=== PATIENT | female | born 1940 | race Hispanic/Latino ===

== ENCOUNTER 2017-03-31 16:54 | Inpatient (IN) | payer MEDICARE, MEDICAID ==
--- NOTE | 2017-03-31 17:23 | ED PDOC ---
Arrival/HPI - General Chief Complaint: Psychiatric Evaluation Time Seen by Provider: 03/31/17 17:13 Historian: Patient - History of Present Illness Narrative History of Present Illness (Text): 03/31/17 17:25 76yr old female presents today sent in by [facility] for aggressive behavior to residents. pts son states that the dr. bowden wants to have patient admitted for adjustment of medications. pt denies any complaints. Time/Duration: Prior to Arrival Past Medical History - Provider Review Nursing Documentation Reviewed: Yes - Travel History Have you recently traveled outside [place] w/in the past 3 mons?: No - Tetanus Immunization Tetanus Immunization: Unknown Family/Social History - Physician Review Nursing Documentation Reviewed: Yes Family/Social History: Unknown Family HX Smoking Status: Former Smoker Hx Alcohol Use: No Hx Substance Use: No Allergies/Home Meds Allergies/Adverse Reactions: Allergies ONIONS Allergy (Uncoded 03/31/17 17:02) ANAPHYLAXIS Home Medications: Home Meds Medication Instructions Recorded Confirmed Acetaminophen [Non-Aspirin Pain 650 mg PO Q4 PRN 03/31/17 03/31/17 Relief] Clonazepam [Klonopin] 0.5 mg PO BID 03/31/17 03/31/17 Lidocaine 5% [Lidoderm] 1 ea TD Q12 03/31/17 03/31/17 Magnesium Hydroxide [Milk Of 30 ml PO DAILY PRN 03/31/17 03/31/17 Magnesia] Metoprolol Tartrate [Lopressor] 12.5 mg PO Q12 03/31/17 03/31/17 Mirtazapine [Remeron] 15 mg PO HS 03/31/17 03/31/17 Multivitamin [Daily Ross] 1 tab PO DAILY 03/31/17 03/31/17 traMADol [Ultram] 50 mg PO TID 03/31/17 03/31/17 Review of Systems - Review of Systems Systems not reviewed;Unavailable: Dementia Respiratory: absent: SOB, Cough Cardiovascular: absent: Chest Pain, Palpitations Gastrointestinal: absent: Abdominal Pain, Vomiting Skin: absent: Rash Neurological: absent: Headache Physical Exam Vital Signs Reviewed: Yes Vital Signs Temp Pulse Resp BP Pulse Ox 03/31/17 19:05 98.5 F 90 18 193/76 H 95 Temperature: Afebrile Blood Pressure: Normal Pulse: Regular Respiratory Rate: Normal Appearance: Positive for: Well-Appearing, Non-Toxic, Comfortable Pain Distress: None Mental Status: Positive for: other (alert) - Systems Exam Head: Present: Atraumatic Mouth: Present: Moist Mucous Membranes Neck: Present: Normal Range of Motion Respiratory/Chest: Present: Clear to Auscultation Cardiovascular: Present: Regular Rate and Rhythm Abdomen: No: Tenderness, Distention, Rebound, Guarding Upper Extremity: Present: Normal ROM Lower Extremity: Present: Normal ROM. No: Edema Neurological: Present: Speech Normal Skin: Present: Warm, Dry Psychiatric: Present: Alert. No: Depressed Mood, Suicidal Ideation Medical Decision Making ED Course and Treatment: 03/31/17 17:32 Patient is nontoxic well-appearing in no distress vital signs are stable. CBC WNL CMP glucose: 158 bun: 26 Tylenol WNL Salicylate WNL Alcohol level WNL Urine drug screen wnl UA; wnl cxr: wnl ekg NSR at78b/m no st elevations, normal axis. normal intervals. pt is medically cleared for PES evaluation Patient was seen and evaluated by PES screener: brittney pt given 1mg of ativan for agitation. Impression; dementia admit behavioral health - Lab Interpretations Lab Results: 03/31/17 17:22 03/31/17 17:22 Lab Results 03/31/17 19:18: Urine Opiates Screen Negative, Urine Methadone Screen Negative, Ur Barbiturates Screen Negative, Ur Phencyclidine Scrn Negative, Ur Amphetamines Screen Negative, U Benzodiazepines Scrn Negative, U Oth Cocaine Metabols Negative, U Cannabinoids Screen Negative 03/31/17 19:18: Urine Color Yellow, Urine Appearance Sl cloudy, Urine pH 6.0, Ur Specific [place] 1.025, Urine Protein Negative, Urine Glucose (UA) Negative, Urine Ketones Negative, Urine Blood Small H, Urine Nitrate Positive H, Urine Bilirubin Negative, Urine Urobilinogen 0.2, Ur Leukocyte Esterase Small H, Urine RBC 5 - 10, Urine WBC 5 - 10, Ur Epithelial Cells 3 - 4, Urine Bacteria Many 03/31/17 17:22: Alcohol, Quantitative < 10 03/31/17 17:22: Salicylates < 1 L, Acetaminophen < 10.0 L 03/31/17 17:22: Sodium 140, Potassium 3.8, Chloride 102, Carbon Dioxide 27, Anion Gap 14, BUN 26 H, Creatinine 0.7, Est GFR ( Amer) > 60, Est GFR ( Non-Af Amer) > 60, Random Glucose 158 H, Calcium 9.9, Total Bilirubin 0.4, AST 28, ALT 36, Alkaline Phosphatase 113, Total Protein 7.1, Albumin 4.2, Globulin 2.8, Albumin/Globulin Ratio 1.5 03/31/17 17:22: WBC 7.7, RBC 4.79, Hgb 14.6, Hct 44.5, MCV 92.9, MCH 30.5, MCHC 32.8, RDW 13.0, Plt Count 244, MPV 9.5, Gran % 68.4 H, Lymph % (Auto) 24.8, [place] % (Auto) 5.7, Eos % (Auto) 1.0 L, Baso % (Auto) 0.1, Gran # 5.29, Lymph # 1.9, [place] # 0.4, Eos # 0.1, Baso # 0.01 - RAD Interpretation Radiology Orders: 03/31/17 17:23 CHEST PORTABLE [RAD] Stat - Medication Orders Current Medication Orders: Discontinued Medications Lorazepam (Ativan) 1 mg IM ONCE ONE PRN Reason: Protocol Stop: 03/31/17 20:26 Last Admin: 03/31/17 20:26 Dose: 1 mg IM Administration Charges Document 03/31/17 20:26 ELIZ (Rec: 03/31/17 21:02 ELIZ [id number]) Injection Site MAR Injection Site Left Deltoid Charges for Administration # of IM Administrations 1 Disposition/Present on Arrival - Present on Arrival Any Indicators Present on Arrival: No History of DVT/PE: No History of Uncontrolled Diabetes: No Urinary Catheter: No History of Decub. Ulcer: No - Disposition Have Diagnosis and Disposition been Completed?: Yes Diagnosis: Dementia Disposition: HOSPITALIZED Disposition Time: 23:44 Patient Plan: Admission Condition: FAIR
[2017-03-31 17:50] LABS: BASO # 0.01 K/mm3 (0.0-2.0); BASO % 0.1 % (0.0-3.0); EOS # 0.1 (0.0-0.7); GRAN # 5.29 (1.4-6.5); GRAN % 68.4 % (50.0-68.0); HEMOGLOBIN 14.6 g/dL (12.0-16.0); LYMPH # 1.9 (1.2-3.4); LYMPH % 24.8 % (22.0-35.0); MEAN CELL VOLUME 92.9 fl (80.0-105.0); MEAN CORPUSCULAR HEMOGLOBIN 30.5 pg (25.0-35.0); MEAN CORPUSCULAR HGB CONC 32.8 g/dl (31.0-37.0); MEAN PLATELET VOLUME 9.5 fl (7.0-11.0); MONO # 0.4 (0.1-0.6); MONO % 5.7 % (1.0-6.0); RBC 4.79 10^6/uL (3.5-6.1); WHITE BLOOD COUNT 7.7 10^3/ul (4.5-11.0)
[2017-03-31 17:55] LABS: ACETAMINOPHEN < 10.0 ug/ml (10.0-20.0); ALB/GLOB RATIO 1.5 (1.1-1.8); ALBUMIN 4.2 g/dL (3.0-4.8); ALT/SGPT 36 U/L (7-56); AST/SGOT 28 U/L (14-36); BLOOD UREA NITROGEN 26 mg/dL (7-21); CALCIUM 9.9 mg/dL (8.4-10.5); GFR AFRICAN-AMERICAN > 60; GFR NON-AFRICAN AMERICAN > 60; SALICYLATE < 1 mg/dL (2.0-20.0)
--- NOTE | 2017-03-31 18:35 | RAD ---
HISTORY: pes eval COMPARISON: No prior. FINDINGS: LUNGS: No active pulmonary disease. PLEURA: No significant pleural effusion identified, no pneumothorax apparent. CARDIOVASCULAR: No radiographic findings to suggest acute or significant cardiovascular disease. OSSEOUS STRUCTURES: No significant abnormalities. VISUALIZED UPPER ABDOMEN: Normal. OTHER FINDINGS: None. IMPRESSION: No active disease.
[2017-03-31 19:29] LABS: URINE BILIRUBIN NEGATIVE (NEGATIVE); URINE BLOOD SMALL (NEGATIVE); URINE GLUCOSE (UA) NEGATIVE (NEGATIVE); URINE LEUKOCYTE ESTERASE SMALL Leu/uL (NEGATIVE); URINE NITRATE POSITIVE (NEGATIVE); URINE PROTEIN NEGATIVE mg/dL (<30 mg/dL); URINE UROBILINOGEN 0.2 E.U./dL (<1 E.U./dL)
[2017-03-31 19:48] LABS: BARBITURATES, UR NEGATIVE (NEGATIVE); BENZODIAZEPINES, UR NEGATIVE (NEGATIVE); OPIATES, UR NEGATIVE (NEGATIVE); PHENCYCLIDINE, UR NEGATIVE (NEGATIVE)
--- NOTE | 2017-03-31 19:50 | CARD ---
APPROVED REPORT EKG Measurement Heart [id number] <Conclusion> Normal sinus rhythm Nonspecific T wave abnormality Abnormal ECG
[2017-03-31 19:57] LABS: URINE APPEARANCE SL CLOUDY (CLEAR); URINE COLOR YELLOW (YELLOW)
[2017-03-31 20:13] LABS: URINE BACTERIA MANY (NEG)
[2017-04-01] MEDS ORDERED: Alum-Mag Hydrox-Simethicone Susp (30 mL) PO PRN (01:15)
[2017-04-01] MEDS ORDERED: Magnesium Hydroxide Susp 30 ml UD PO PRN (01:15)
--- NOTE | 2017-04-01 03:14 | PCM.BM ---
<Eduard Braga - Last Filed: 04/01/17 03:11> Treatment Plan Problems - Problems identified on initial assessmt aggressive behavior Date Initiated: 04/01/17 Time Initiated: 01:00 Assessment reference: NA Status: Referred Priority: 2 dementia Date Initiated: 04/01/17 Time Initiated: 01:00 Assessment reference: NA Status: Active Priority: 1 Treatment assets and liabiliti Patient Assests: good support system Patient Liabilities: imparied memory, other (fall risk) - Milieu Protocol Maintain good personal hygiene: daily Encourage regular showers, daily Remind patient to perform daily oral care, daily Assist patient to perform ADL's Conduct patient checks and document Observation sheet: 1:1 Maintain personal safety: every shift Educate patient to report safety concerns to staff, every shift Monitor environment for contraband/sharps Medication safety: Monitor for expected outcome, potential side effects: every shift, Assess barriers to learning: every shift, Assess readiness for medication education: every shift Discharge/Continuing Care - Education Needs Education Needs: Family Medication, Family Diagnosis/Disease Process - Discharge Discharge Criteria: Free of agitation, Normal sleep pattern <Rowan Villagomez - Last Filed: 04/02/17 12:01> - Diagnosis (1) Dementia Status: Acute Interventions: MEDICATION MANAGEMENT 04/02/17 12:01 <Tiffany Cavazos - Last Filed: 04/03/17 16:52>
[2017-04-01 07:56] LABS: GLUCOSE,FASTING 111 mg/dL (65-110); HDL CHOLESTEROL 43 mg/dL (29-60)
[2017-04-01 08:07] LABS: LDL CHOLESTEROL 150 mg/dL (0-129)
--- NOTE | 2017-04-01 08:25 | CP.PCM.CON ---
<Chao Jacome - Last Filed: 04/01/17 15:15> History of Present Illness - History of Present Illness History of Present Illness: 76 F with a PMHx of Alzheimer's dementia, COPD, and anxiety brought in by ambulance to [facility] from [facility] with complaints of agitation and aggressive behavior towards correction residents. As per family , pt's back tender insulation board Dr. Bhakta requested to have pt's medications adjusted. Pt was seen and examined at bedside. Pt is AAOx1, denies any complaints at this time. Pt is confused, disorganized and a poor historian. Pt has unsteady gait, has 1;1 sitter for pt safety. Pt denied any current SI/HI. As per nursing staff , pt received haldol overnight and subsequently retired to bed. Pt is moving bowel and bladder independently and regularly. Pt is tolerating PO intake. Pt denied any sleep disturbances. Pt denied headache, fever, chills, sob, chest pains, abdominal pains, n/v/d/c. PMHx: Alzheimer's dementia, ?COPD, kyphoscoliosis and anxiety PSHx: Denied SHx: Denied tobacco/etoh/illicit drug FamHx: Noncontributory Meds: MAR reviewed Allergies: Onions PMD: Dr. Fowler POA: Mark Spangler Review of Systems - Review of Systems Systems not reviewed;Unavailable: Dementia Past Patient History - Tetanus Immunizations Tetanus Immunization: Unknown - Past Social History Smoking Status: Former Smoker - CARDIAC Hx Cardiac Disorders: No Hx Hypertension: No - PULMONARY Hx Tuberculosis: No - NEUROLOGICAL HX Cerebrovascular Accident: No Hx Seizures: No - HEMATOLOGICAL/ONCOLOGICAL Hx Cancer: No Hx Human Immunodeficiency Virus (HIV): No - GENITOURINARY/GYNECOLOGICAL Hx Sexually Transmitted Disorders: No - PSYCHIATRIC Hx Substance Use: No Meds Allergies/Adverse Reactions: Allergies Allergy/AdvReac Type Severity Reaction Status Date / Time ONIONS Allergy ANAPHYLAXIS Uncoded 04/01/17 01:28 - Medications Medications: Current Medications Acetaminophen (Tylenol 325mg Tab) 650 mg PO Q4 PRN PRN Reason: Pain, moderate (4-7) Al Hydrox/Mg Hydrox/Simethicone (Maalox Plus 30 Ml) 30 ml PO DAILY PRN PRN Reason: Upset Stomach Clonazepam (Klonopin) 0.5 mg PO BID RUBI PRN Reason: Protocol Lidocaine (Lidoderm) 1 ea TD DAILY RUBI Magnesium Hydroxide (Milk Of Magnesia) 30 ml PO DAILY PRN PRN Reason: Constipation Metoprolol Tartrate (Lopressor) 25 mg PO BID RUBI Mirtazapine (Remeron) 15 mg PO HS RUBI Multivitamins (Thera Tab) 1 tab PO 0800 RUBI Tramadol HCl (Ultram) 50 mg PO TID RUBI Physical Exam - Constitutional Appears: No Acute Distress - Head Exam Head Exam: ATRAUMATIC, NORMAL INSPECTION, NORMOCEPHALIC - Eye Exam Eye Exam: EOMI, Normal appearance, PERRL Pupil Exam: NORMAL ACCOMODATION, PERRL - ENT Exam ENT Exam: Mucous Membranes Moist, Normal Exam - Neck Exam Neck exam: Positive for: Normal Inspection - Respiratory Exam Respiratory Exam: Clear to Auscultation Bilateral, NORMAL BREATHING PATTERN - Cardiovascular Exam Cardiovascular Exam: REGULAR RHYTHM, +S1, +S2 - GI/Abdominal Exam GI & Abdominal Exam: Normal Bowel Sounds, Soft. absent: Tenderness - Extremities Exam Extremities exam: Positive for: normal inspection - Back Exam Additional comments: + Kyphoscoliosis - Neurological Exam Neurological exam: Alert, Altered, CN II-XII Intact - Psychiatric Exam Psychiatric exam: Flat Affect, Normal Mood - Skin Skin Exam: Dry, Intact, Normal Color, Warm Results - Vital Signs Recent Vital Signs: Last Vital Signs Temp 98.1 F 04/01/17 00:30 Pulse 96 H 04/01/17 00:30 Resp 22 04/01/17 00:30 BP 186/92 H 04/01/17 00:30 Pulse Ox 99 04/01/17 00:10 - Labs Result Diagrams: 03/31/17 17:22 03/31/17 17:22 Labs: Laboratory Results - last 24 hr 04/01/17 07:00 Fasting Glucose 111 H Triglycerides 160 Cholesterol 216 H HDL Cholesterol 43 Assessment & Plan - Assessment and Plan (Free Text) Assessment: 76 F with a PMHx of Alzheimer's dementia, COPD, and anxiety brought in by ambulance to [facility] from [facility] with complaints of agitation and aggressive behavior towards correction residents. Pt is on 1:1 observation for pt safety. Pt was hypertensive, however upon restarting her medications, her vital signs have stablized. Pt found to have UTI on UA and will start course of macrobid. Labwork reviewed. TSH wnl. We will sign off at this time, please reconsult as needed. <Sudeep Bailey P - Last Filed: 04/01/17 17:58> Meds - Medications Medications: Current Medications Acetaminophen (Tylenol 325mg Tab) 650 mg PO Q4 PRN PRN Reason: Pain, moderate (4-7) Al Hydrox/Mg Hydrox/Simethicone (Maalox Plus 30 Ml) 30 ml PO DAILY PRN PRN Reason: Upset Stomach Clonazepam (Klonopin) 0.5 mg PO BID RUBI PRN Reason: Protocol Last Admin: 04/01/17 17:08 Dose: 0.5 mg Haloperidol (Haldol) 0.25 mg PO QAM RUBI PRN Reason: Protocol Haloperidol (Haldol) 0.5 mg PO HS [facility] PRN Reason: Protocol Lidocaine (Lidoderm) 1 ea TD DAILY [facility] Last Admin: 04/01/17 08:49 Dose: 1 ea Magnesium Hydroxide (Milk Of Magnesia) 30 ml PO DAILY PRN PRN Reason: Constipation Metoprolol Tartrate (Lopressor) 25 mg PO BID [facility] Last Admin: 04/01/17 17:08 Dose: 25 mg Mirtazapine (Remeron) 15 mg PO HS [facility] Multivitamins (Thera Tab) 1 tab PO 0800 [facility] Last Admin: 04/01/17 08:58 Dose: Not Given Tramadol HCl (Ultram) 50 mg PO TID [facility] Last Admin: 04/01/17 17:23 Dose: Not Given Trimethoprim/Sulfamethoxazole (Bactrim Ds Tab) 1 tab PO BID [facility] PRN Reason: Protocol Last Admin: 04/01/17 17:08 Dose: 1 tab Results - Vital Signs Recent Vital Signs: Last Vital Signs Temp 98.0 F 04/01/17 07:00 Pulse 83 04/01/17 17:08 Resp 20 04/01/17 07:00 BP 154/89 H 04/01/17 17:08 Pulse Ox 99 04/01/17 00:10 - Labs Result Diagrams: 03/31/17 17:22 03/31/17 17:22 Labs: Laboratory Results - last 24 hr 04/01/17 04/01/17 04/01/17 07:00 07:00 07:00 Fasting Glucose 111 H Triglycerides 160 Cholesterol 216 H LDL Cholesterol Direct 150 H HDL Cholesterol 43 TSH 3rd Generation 0.66 RPR Nonreactive Attending/Attestation - Attestation I have personally seen and examined this patient.: Yes I have fully participated in the care of the patient.: Yes I have reviewed all pertinent clinical information: Yes Notes (Text): 04/01/17 17:53 Patient is here for dementia with behavioral changes, 1:1, not anxious or agitated at time of exam, has h/o severe kyphoscoliosis, h/o htn, BP fluctuations noticed likely from agitation, will continue to monitor besides additional psych meds may reduce bp further. UTI noticed although not cath sample but difficult to obtain, will treat empirically.
[2017-04-01] MEDS: Multivitamin Therapeutic Tab PO SCH ×2 (08:48→08:58)
[2017-04-01] MEDS: Lidocaine 5% Patch TD SCH (08:49)
--- NOTE | 2017-04-01 11:14 | PCM.PSYCH ---
Initial Psychiatric Evaluation - Initial Psychiatric Evaluation Legal Status: DPOA History of Present Illness and Precipitating Events: Patient is a very poor historian so much information was obtained from accompanying intermediate paperwork. Patient is a 76 yo female with history of Major Depression, Anxiety Disorder, Alzheimers dementia who was transferred from [facility] for increase agitation and aggressive behavior towards staff. Patient's turbine engineer, Dr. Mir evaluated patient and ordered a transfer for "re-adjustment of medications". Thus far patient has appeared calm, cheerful and pleasant during this admission. She is completely disoriented to location, month, year and circumstances. Her responses are frequently illogical and/or inconsistent. I ask about her mood and she responds "my mother is feeling good". She repeats this response even after I repeat my question. Patient indicates that she is and that her is currently on a ship. She cannot provide meaningful details about her past including her employment history or children(s) names. Patient denies depression, anxiety or paranoia. She is not in pain. Patient doesn't appear to be hallucinating either. Her insight and judgment are poor. PSYCHIATRIC HISTORY Patient has one prior admission to [facility]. Treated with klonopin 0.5 mg po bid, remeron 15 mg HS at her jail. SOCIAL Patient is an unreliable historian so veracity of her statements is questionable. Patient reports she was born and raised in [place]. with 2 children. 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 Patient denies any history of drug/alcohol/tobacco dependency. POA paperwork was found in patient's chart. Patient's POA is Mark Spangler. Current Medications: Active Medications Generic Name Dose Route Start Last Admin Trade Name Freq PRN Reason Stop Dose Admin Acetaminophen 650 mg 04/01/17 01:15 Tylenol 325mg Tab PO Q4 PRN Pain, moderate (4-7) Al Hydrox/Mg Hydrox/Simethicone 30 ml 04/01/17 01:15 Maalox Plus 30 Ml PO DAILY PRN Upset Stomach Clonazepam 0.5 mg 04/01/17 08:00 Klonopin PO BID RUBI Protocol Lidocaine 1 ea 04/01/17 08:00 Lidoderm TD DAILY RUBI Magnesium Hydroxide 30 ml 04/01/17 01:15 Milk Of Magnesia PO DAILY PRN Constipation Metoprolol Tartrate 25 mg 04/01/17 08:00 Lopressor PO BID RUBI Mirtazapine 15 mg 04/01/17 22:00 Remeron PO HS [facility] Multivitamins 1 tab 04/01/17 08:00 Thera Tab PO 0800 RUBI Tramadol HCl 50 mg 04/01/17 08:00 Ultram PO TID RUBI Past Psychiatric History - Past Psychiatric History Pertinent Medical Hx (Current Medical&Sleep Prob, Allergies): Allergies Allergy/AdvReac Type Severity Reaction Status Date / Time ONIONS Allergy ANAPHYLAXIS Uncoded 04/01/17 01:28 Acetaminophen [Non-Aspirin Pain Relief] 650 mg PO Q4 PRN 03/31/17 Clonazepam [Klonopin] 0.5 mg PO BID 03/31/17 Lidocaine 5% [Lidoderm] 1 ea TD Q12 03/31/17 Magnesium Hydroxide [Milk Of Magnesia] 30 ml PO DAILY PRN 03/31/17 Metoprolol Tartrate [Lopressor] 12.5 mg PO Q12 03/31/17 Mirtazapine [Remeron] 15 mg PO HS 03/31/17 Multivitamin [Daily Ross] 1 tab PO DAILY 03/31/17 traMADol [Ultram] 50 mg PO TID 03/31/17 Mental Status Examination - Affect Affect: Blunted - Motor Activity Motor Activity: Calm - Reliability in Providing Information Reliability in Providing Information: Poor, due to alteration in thoughts, Poor , due to cognitve impairment - Speech Speech: Disorganized, Irrelevant - Formal Thought Process Formal Thought Process: Delusions, Loosening of associations - Cognitive Functions Orientation: Person Sensorium: Alert Attention/Concentration: Easily distracted Judgement: Imparied, as evidence by: Poor judgement, Imparied, as evidence by: Lack of insight into illness - Risk Risk: Diminished functioning DSM 5 DX - DSM 5 DSM 5 Diagnosis: Alzheimers Dementia with behavioral disturbance Major Depression by history Anxiety Disorder by history - Recommended/Plan of Treatment Treatment Recommendations and Plan of Treatment: * Group, milieu and supportive tx as tolerated * Haldol 0.25 mg AM and 0.5 mg HS for disorganization/aggression * klonopin 0.5 mg po bid for anxiety * Remeron 15 mg po HS for history of depression * Appreciate f/u by Dr. Ayaz Guidry who was apprised of patient's elevated vitals on the unit. Also planning to start macrobid for UTI. * Vitals reviewed and noted below, will follow blood pressures closely 03/31/17 04/01/17 04/01/17 23:45 00:10 00:30 Temperature 98.1 F 98.1 F Pulse Rate 100 H 86 96 H Respiratory 18 18 22 Rate Blood Pressure 170/100 H 152/88 H 186/92 H 04/01/17 04/01/17 07:00 08:48 Temperature 98.0 F Pulse Rate 88 88 Respiratory 20 Rate Blood Pressure 152/94 H 152/94 H ER LABS AND STUDIES 03/31/17 19:18: Urine Opiates Screen Negative, Urine Methadone Screen Negative, Ur Barbiturates Screen Negative, Ur Phencyclidine Scrn Negative, Ur Amphetamines Screen Negative, U Benzodiazepines Scrn Negative, U Oth Cocaine Metabols Negative, U Cannabinoids Screen Negative 03/31/17 19:18: Urine Color Yellow, Urine Appearance Sl cloudy, Urine pH 6.0, Ur Specific [place] 1.025, Urine Protein Negative, Urine Glucose (UA) Negative, Urine Ketones Negative, Urine Blood Small H, Urine Nitrate Positive H, Urine Bilirubin Negative, Urine Urobilinogen 0.2, Ur Leukocyte Esterase Small H, Urine RBC 5 - 10, Urine WBC 5 - 10, Ur Epithelial Cells 3 - 4, Urine Bacteria Many 03/31/17 17:22: Alcohol, Quantitative < 10 03/31/17 17:22: Salicylates < 1 L, Acetaminophen < 10.0 L 03/31/17 17:22: Sodium 140, Potassium 3.8, Chloride 102, Carbon Dioxide 27, Anion Gap 14, BUN 26 H, Creatinine 0.7, Est GFR ( Amer) > 60, Est GFR ( Non-Af Amer) > 60, Random Glucose 158 H, Calcium 9.9, Total Bilirubin 0.4, AST 28, ALT 36, Alkaline Phosphatase 113, Total Protein 7.1, Albumin 4.2, Globulin 2.8, Albumin/Globulin Ratio 1.5 03/31/17 17:22: WBC 7.7, RBC 4.79, Hgb 14.6, Hct 44.5, MCV 92.9, MCH 30.5, MCHC 32.8, RDW 13.0, Plt Count 244, MPV 9.5, Gran % 68.4 H, Lymph % (Auto) 24.8, [place] % (Auto) 5.7, Eos % (Auto) 1.0 L, Baso % (Auto) 0.1, Gran # 5.29, Lymph # 1.9, [place] # 0.4, Eos # 0.1, Baso # 0.01 FLOOR LABS 04/01/17 04/01/17 07:00 07:00 Fasting Glucose 111 H Triglycerides 160 Cholesterol 216 H LDL Cholesterol Direct 150 H TSH 3rd Generation 0.66 - Smoking Cessation Smoking Cessation Initiated: No
[2017-04-01] MEDS: Tmp-Smz 800 mg-160 mg DS Tab PO SCH (17:08)
[2017-04-02] MEDS: Tmp-Smz 800 mg-160 mg DS Tab PO SCH ×2 (08:52→16:29)
[2017-04-02] MEDS: Lidocaine 5% Patch TD SCH (08:52)
[2017-04-02] MEDS: Multivitamin Therapeutic Tab PO SCH (08:52)
--- NOTE | 2017-04-02 09:22 | PCM.PYCHPN ---
Psychiatric Progress Note - Psychiatric Progress Note Patient seen today, length of contact: 25 min Problems Identified/Issues Discussed: Patient is a very poor historian so much information was obtained from accompanying alf paperwork. Patient is a 76 yo female with history of Major Depression, Anxiety Disorder, Alzheimers dementia who was transferred from [facility] for increase agitation and aggressive behavior towards staff. Patient's commutator repairer, Dr. Mir evaluated patient and ordered a transfer for "re-adjustment of medications". Thus far patient has appeared calm, cheerful and pleasant during this admission. She is completely disoriented to location, month, year and circumstances. Her responses are frequently illogical and/or inconsistent. I ask about her mood and she responds "my mother is feeling good". She repeats this response even after I repeat my question. Patient indicates that she is and that her is currently on a ship. She cannot provide meaningful details about her past including her employment history or children(s) names. Patient denies depression, anxiety or paranoia. She is not in pain. Patient doesn't appear to be hallucinating either. Her insight and judgment are poor. PSYCHIATRIC HISTORY Patient has one prior admission to [facility]. Treated with klonopin 0.5 mg po bid, remeron 15 mg HS at her longterm. SOCIAL Patient is an unreliable historian so veracity of her statements is questionable. Patient reports she was born and raised in [place] with 2 children. 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 Patient denies any history of drug/alcohol/tobacco dependency. POA paperwork was found in patient's chart. Patient's POA is Mark Spangler. ~~~~~~~~~~~ I reviewed recent notes and patient was seen at bedside. Patient remains grossly disoriented and confused. She doesn't know her current location, month, year or circumstances. Her memory is notably impaired. Nevertheless she has been calm and pleasant in the unit. She is cooperative with questioning however it is difficult to establish any meaningful dialogue. Her responses are random, irrelevant and inconsistent. Affect is flat and unaffected. She doesn't appear to be concerned about her disorientation and she doesn't vocalize any curiosity or interest about her treatment plan. Patient denies hallucinations and doesn't appear to be responding to internal stimuli. Her eye contact is good, sometimes intense. Patient is more illogical than delusional as no fixed delusion can be elicited at this time. She denies any discomfort or pain. There were no behavioral issues overnight. Diagnostic Results: Alzheimers Dementia with behavioral disturbance Major Depression by history Anxiety Disorder by history Mental Status Examination - Cognitive Function Orientation: Person Attention: Poor Concentration: Poor Association: Loose Fund of Knowledge: Poor - Mood Mood: Neutral - Affect Affect: Blunted, Flat - Speech Speech: Soft - Formal Thought Process Formal Thought Process: Delusions, Loosening of associations - Suicidal Ideation Suicidal Ideation: No - Homicidal Ideation Homicidal Ideation: No Goal/Treatment Plan - Goal/Treatment Plan Progress Toward Problem(s) and Goals/Treatment Plan: * Group, milieu and supportive tx as tolerated * Haldol 0.25 mg AM and 0.5 mg HS for disorganization/aggression * klonopin 0.5 mg po bid for anxiety * Remeron 15 mg po HS for history of depression * Appreciate f/u by Dr. Ayaz Guidry/Leo who was apprised of patient's elevated vitals on the unit. Also planning to start macrobid for UTI. Signed off. Will request medicine to f/u again as patient's vitals are still elevated. * Vitals reviewed and noted below, will follow blood pressures closely 03/31/17 04/01/17 04/01/17 23:45 00:10 00:30 Temperature 98.1 F 98.1 F Pulse Rate 100 H 86 96 H Respiratory 18 18 22 Rate Blood Pressure 170/100 H 152/88 H 186/92 H 04/01/17 04/01/17 04/01/17 07:00 08:48 17:08 Temperature 98.0 F Pulse Rate 88 88 83 Respiratory 20 Rate Blood Pressure 152/94 H 152/94 H 154/89 H ER LABS AND STUDIES 03/31/17 19:18: Urine Opiates Screen Negative, Urine Methadone Screen Negative, Ur Barbiturates Screen Negative, Ur Phencyclidine Scrn Negative, Ur Amphetamines Screen Negative, U Benzodiazepines Scrn Negative, U Oth Cocaine Metabols Negative, U Cannabinoids Screen Negative 03/31/17 19:18: Urine Color Yellow, Urine Appearance Sl cloudy, Urine pH 6.0, Ur Specific [place] 1.025, Urine Protein Negative, Urine Glucose (UA) Negative, Urine Ketones Negative, Urine Blood Small H, Urine Nitrate Positive H, Urine Bilirubin Negative, Urine Urobilinogen 0.2, Ur Leukocyte Esterase Small H, Urine RBC 5 - 10, Urine WBC 5 - 10, Ur Epithelial Cells 3 - 4, Urine Bacteria Many 03/31/17 17:22: Alcohol, Quantitative < 10 03/31/17 17:22: Salicylates < 1 L, Acetaminophen < 10.0 L 03/31/17 17:22: Sodium 140, Potassium 3.8, Chloride 102, Carbon Dioxide 27, Anion Gap 14, BUN 26 H, Creatinine 0.7, Est GFR ( Amer) > 60, Est GFR ( Non-Af Amer) > 60, Random Glucose 158 H, Calcium 9.9, Total Bilirubin 0.4, AST 28, ALT 36, Alkaline Phosphatase 113, Total Protein 7.1, Albumin 4.2, Globulin 2.8, Albumin/Globulin Ratio 1.5 03/31/17 17:22: WBC 7.7, RBC 4.79, Hgb 14.6, Hct 44.5, MCV 92.9, MCH 30.5, MCHC 32.8, RDW 13.0, Plt Count 244, MPV 9.5, Gran % 68.4 H, Lymph % (Auto) 24.8, [place] % (Auto) 5.7, Eos % (Auto) 1.0 L, Baso % (Auto) 0.1, Gran # 5.29, Lymph # 1.9, [place] # 0.4, Eos # 0.1, Baso # 0.01 FLOOR LABS 04/01/17 04/01/17 04/01/17 07:00 07:00 07:00 Fasting Glucose 111 H Triglycerides 160 Cholesterol 216 H LDL Cholesterol Direct 150 H HDL Cholesterol 43 TSH 3rd Generation 0.66 RPR Nonreactive
[2017-04-03 06:52] VITALS: O2SAT 100
[2017-04-03] MEDS: Lidocaine 5% Patch TD SCH (08:16)
[2017-04-03] MEDS: Tmp-Smz 800 mg-160 mg DS Tab PO SCH ×2 (08:17→15:59)
[2017-04-03] MEDS: Multivitamin Therapeutic Tab PO SCH (08:17)
--- NOTE | 2017-04-03 16:53 | PCM.PYCHPN ---
Psychiatric Progress Note - Psychiatric Progress Note Patient seen today, length of contact: 30 minutes Patient Chief Complaint: "I don't know what you're asking, do you know where you are?, My mother is 74 and she is looking for me" Problems Identified/Issues Discussed: this advertising copy writer attempted to discuss treatment plan with the patient, but patient is here confused, has advanced dementia. This advertising copy writer gave a call to patient by mouth a, discussed: Suicide/ homicide prevention, past psychiatric h/o, current psychiatric symptoms, medical problems , risk/benefits and alternatives of medications, medications compliance, coping strategies, substance abuse h/o, relapse prevention, importance of follow up with psychiatrist and therapist, discharge plan. Medical Problems: patient has advanced dementia Urinary tract infection History of falls COPD kephoscoliosis Diagnostic Results: 03/31/17 17:22 03/31/17 17:22 Lab Results 04/01/17 07:00: RPR Nonreactive 04/01/17 07:00: TSH 3rd Generation 0.66 04/01/17 07:00: Fasting Glucose 111 H, Triglycerides 160, Cholesterol 216 H, LDL Cholesterol Direct 150 H, HDL Cholesterol 43 03/31/17 19:18: Urine Opiates Screen Negative, Urine Methadone Screen Negative, Ur Barbiturates Screen Negative, Ur Phencyclidine Scrn Negative, Ur Amphetamines Screen Negative, U Benzodiazepines Scrn Negative, U Oth Cocaine Metabols Negative, U Cannabinoids Screen Negative 03/31/17 19:18: Urine Color Yellow, Urine Appearance Sl cloudy, Urine pH 6.0, Ur Specific [place] 1.025, Urine Protein Negative, Urine Glucose (UA) Negative, Urine Ketones Negative, Urine Blood Small H, Urine Nitrate Positive H, Urine Bilirubin Negative, Urine Urobilinogen 0.2, Ur Leukocyte Esterase Small H, Urine RBC 5 - 10, Urine WBC 5 - 10, Ur Epithelial Cells 3 - 4, Urine Bacteria Many 03/31/17 17:22: Alcohol, Quantitative < 10 03/31/17 17:22: Salicylates < 1 L, Acetaminophen < 10.0 L 03/31/17 17:22: Sodium 140, Potassium 3.8, Chloride 102, Carbon Dioxide 27, Anion Gap 14, BUN 26 H, Creatinine 0.7, Est GFR ( Amer) > 60, Est GFR ( Non-Af Amer) > 60, Random Glucose 158 H, Calcium 9.9, Total Bilirubin 0.4, AST 28, ALT 36, Alkaline Phosphatase 113, Total Protein 7.1, Albumin 4.2, Globulin 2.8, Albumin/Globulin Ratio 1.5 03/31/17 17:22: WBC 7.7, RBC 4.79, Hgb 14.6, Hct 44.5, MCV 92.9, MCH 30.5, MCHC 32.8, RDW 13.0, Plt Count 244, MPV 9.5, Gran % 68.4 H, Lymph % (Auto) 24.8, [place] % (Auto) 5.7, Eos % (Auto) 1.0 L, Baso % (Auto) 0.1, Gran # 5.29, Lymph # 1.9, [place] # 0.4, Eos # 0.1, Baso # 0.01 Vital Signs Temp Pulse Resp BP Pulse Ox 04/02/17 07:00 97.6 F 86 16 175/86 H 100 04/01/17 17:08 83 154/89 H 04/01/17 08:48 88 152/94 H 04/01/17 07:00 98.0 F 88 20 152/94 H 04/01/17 00:30 98.1 F 96 H 22 186/92 H 04/01/17 00:10 86 18 152/88 H 99 03/31/17 23:45 98.1 F 100 H 18 170/100 H 97 03/31/17 19:05 98.5 F 90 18 193/76 H 95 DSM 5 Symptoms Update: s per Dr. Polo's report: Patient is a 76 yo female with history of Major Depression, Anxiety Disorder, Alzheimers dementia who was transferred from [facility] for increase agitation and aggressive behavior towards staff. Patient's bunch trimmer mold, Dr. Mir evaluated patient and ordered a transfer for "re-adjustment of medications". patient was seen and examined today at the dining area, patient looks much younger than her chronological age, patient appears to be very confused, no meaningful conversation possible. Patient does not know where she is, patient asked this advertising copy writer if sheknows where she is. Patient also was looking for her 74- year-old mother, off note patient is 76 years old herself. As per staff patient has sundowning symptoms where she appears to be more confused and restless that's why she is on one-to-one which was started by Dr. Ayon. Patient GIA Spangler (daughter in law) contacted this advertising copy writer as per POA patient does have advanced dementia patient does not have history of agitated or aggressive behavior, patient does not have history of being violent, this advertising copy writer educated POA about risk, benefits, alternatives of the medications as well as potential diagnosis and treatment plan, family was appreciative. "staff is great, we are very happy with the services". dr. Polo added haloperidol 0.5 mg twice a day, continued with klonopin 0.5 mg po bid, remeron 15 mg HS at her [facility]. overall patient tolerated medications well, no side effects observed or reported. Diagnostic Results: Alzheimers Dementia with behavioral disturbance Major Depression by history Anxiety Disorder by history Medication Change: No (all meds was started by Dr. Polo) Medical Record Reviewed: Yes Consults ordered or reviewed: medical consult appreciated, patient was started on antibiotics for urinary tract infection Mental Status Examination - Cognitive Function Orientation: Person Attention: Poor Concentration: Poor Association: Loose Fund of Knowledge: Poor - Mood Mood: Neutral - Affect Affect: Blunted, Flat - Speech Speech: Soft - Formal Thought Process Formal Thought Process: Delusions, Loosening of associations - Suicidal Ideation Suicidal Ideation: No - Homicidal Ideation Homicidal Ideation: No Goal/Treatment Plan - Goal/Treatment Plan Need for Continued Stay: Remain at risks for inpatient hospitalization, Severe depression anxiety, Discharge may exacerbated symptoms, Severe functional impairment Progress Toward Problem(s) and Goals/Treatment Plan: Milieu/structure/supportive therapy Medical consult appreciated, see medical team note for more detailed info SW consultation for discharge plan and social issues Med management Remeron 15 mg at the nighttime will be continued for depression as well as insomnia Klonopin 0.5 mg twice a day will be continued for anxiety and restless behavior Haloperidol 0.5 mg twice a day will be continued for delirium Antibiotics for urinary tract infection Family involvement Follow up on labs Will monitor closely Pt was educated about risk/benefits and alternatives of medications, coping strategies (safety plan, suicide prevention), relapse prevention, importance of follow up with psychiatrist and therapist, stay away from drugs/alcohol/smoking Estimated Date of D/C: 04/06/17 (we'll monitor closely) - Smoking Cessation Smoking Cessation Initiated: No Reason for not providing: patient does not smoke
[2017-04-04] MEDS ORDERED: DiphenhydrAMINE 12.5 mg/5 ml LIQ UD (5 ml) PO ONE (00:35)
[2017-04-04 07:11] VITALS: TEMP 98.4
[2017-04-04] MEDS: Multivitamin Therapeutic Tab PO SCH (10:12)
[2017-04-04] MEDS: Tmp-Smz 800 mg-160 mg DS Tab PO SCH ×2 (10:13→16:38)
[2017-04-04] MEDS: Lidocaine 5% Patch TD SCH (10:13)
--- NOTE | 2017-04-04 16:14 | PCM.PYCHPN ---
Psychiatric Progress Note - Psychiatric Progress Note Patient seen today, length of contact: 30 minutes Patient Chief Complaint: "they told me what I did to his hair, than they asked me to give it to them, I had no problems, I do not care, yes, yes, blue thing was in...", no meaningful conversation possible. Problems Identified/Issues Discussed: this job specification writer attempted to discuss treatment plan with the patient, but patient is here confused, has advanced dementia. This job specification writer gave a call to patient POA (correction to my previous note), discussed: Suicide/ homicide prevention, past psychiatric h/o, current psychiatric symptoms, medical problems, risk/benefits and alternatives of medications, medications compliance, coping strategies, substance abuse h/o, relapse prevention, importance of follow up with psychiatrist and therapist, discharge plan. Medical Problems: patient has advanced dementia Urinary tract infection History of falls COPD kephoscoliosis Diagnostic Results: 03/31/17 17:22 03/31/17 17:22 Lab Results 04/01/17 07:00: RPR Nonreactive 04/01/17 07:00: TSH 3rd Generation 0.66 04/01/17 07:00: Fasting Glucose 111 H, Triglycerides 160, Cholesterol 216 H, LDL Cholesterol Direct 150 H, HDL Cholesterol 43 03/31/17 19:18: Urine Opiates Screen Negative, Urine Methadone Screen Negative, Ur Barbiturates Screen Negative, Ur Phencyclidine Scrn Negative, Ur Amphetamines Screen Negative, U Benzodiazepines Scrn Negative, U Oth Cocaine Metabols Negative, U Cannabinoids Screen Negative 03/31/17 19:18: Urine Color Yellow, Urine Appearance Sl cloudy, Urine pH 6.0, Ur Specific [place] 1.025, Urine Protein Negative, Urine Glucose (UA) Negative, Urine Ketones Negative, Urine Blood Small H, Urine Nitrate Positive H, Urine Bilirubin Negative, Urine Urobilinogen 0.2, Ur Leukocyte Esterase Small H, Urine RBC 5 - 10, Urine WBC 5 - 10, Ur Epithelial Cells 3 - 4, Urine Bacteria Many 03/31/17 17:22: Alcohol, Quantitative < 10 03/31/17 17:22: Salicylates < 1 L, Acetaminophen < 10.0 L 03/31/17 17:22: Sodium 140, Potassium 3.8, Chloride 102, Carbon Dioxide 27, Anion Gap 14, BUN 26 H, Creatinine 0.7, Est GFR ( Amer) > 60, Est GFR ( Non-Af Amer) > 60, Random Glucose 158 H, Calcium 9.9, Total Bilirubin 0.4, AST 28, ALT 36, Alkaline Phosphatase 113, Total Protein 7.1, Albumin 4.2, Globulin 2.8, Albumin/Globulin Ratio 1.5 03/31/17 17:22: WBC 7.7, RBC 4.79, Hgb 14.6, Hct 44.5, MCV 92.9, MCH 30.5, MCHC 32.8, RDW 13.0, Plt Count 244, MPV 9.5, Gran % 68.4 H, Lymph % (Auto) 24.8, [place] % (Auto) 5.7, Eos % (Auto) 1.0 L, Baso % (Auto) 0.1, Gran # 5.29, Lymph # 1.9, [place] # 0.4, Eos # 0.1, Baso # 0.01 Vital Signs Temp Pulse Resp BP Pulse Ox 04/02/17 07:00 97.6 F 86 16 175/86 H 100 04/01/17 17:08 83 154/89 H 04/01/17 08:48 88 152/94 H 04/01/17 07:00 98.0 F 88 20 152/94 H 04/01/17 00:30 98.1 F 96 H 22 186/92 H 04/01/17 00:10 86 18 152/88 H 99 03/31/17 23:45 98.1 F 100 H 18 170/100 H 97 03/31/17 19:05 98.5 F 90 18 193/76 H 95 DSM 5 Symptoms Update: Patient is a 76 yo female with history of Major Depression, Anxiety Disorder, Alzheimers dementia who was transferred from [facility] for increase agitation and aggressive behavior towards staff. Patient's ceo ziff davis, Dr. Mir evaluated patient and ordered a transfer for "re-adjustment of medications". patient was seen and examined today at the TV area, patient looks much younger than her chronological age, patient appears to be very confused, no meaningful conversation possible, pt is still on 1:1 observation because pt has wondering behavior, pt also had episode of restless and agitated behavior at the morning, she tried to push PCP and asked him to let her go to the different direction, pt did not required PRN, was able to be redirected. Patient does not know where she is, very confused, holds conversation with no meaning. 04/04/17 Patient POA Ramona Spangler (daughter in law) contacted this job specification writer as per POA patient does have advanced dementia patient does not have history of agitated or aggressive behavior, patient does not have history of being violent, this job specification writer educated POA about risk, benefits, alternatives of the medications as well as potential diagnosis and treatment plan, family was appreciative. "staff is great, we are very happy with the services". will increase am dose of Haldol, continued with klonopin 0.5 mg po bid, remeron 15 mg HS at her shelter. pt was not able to sleep last night, Benadryl 12.5 mg was given to the pt, pt slept well, will continue as needed. overall patient tolerated medications well, no side effects observed or reported. Diagnostic Results: Alzheimers Dementia with behavioral disturbance Major Depression by history Anxiety Disorder by history Medication Change: Yes (haldol was increased at am 0.5mg ) Medical Record Reviewed: Yes Consults ordered or reviewed: medical consult appreciated, patient was started on antibiotics for urinary tract infection Mental Status Examination - Cognitive Function Orientation: Person Attention: Poor (somewhat better) Concentration: Poor (somewhat better) Association: Loose Fund of Knowledge: Poor - Mood Mood: Neutral - Affect Affect: Constricted (but more reactive today) - Speech Speech: Soft - Formal Thought Process Formal Thought Process: Delusions, Loosening of associations - Suicidal Ideation Suicidal Ideation: No - Homicidal Ideation Homicidal Ideation: No Goal/Treatment Plan - Goal/Treatment Plan Need for Continued Stay: Remain at risks for inpatient hospitalization, Severe depression anxiety, Discharge may exacerbated symptoms, Severe functional impairment Progress Toward Problem(s) and Goals/Treatment Plan: Milieu/structure/supportive therapy Medical consult appreciated, see medical team note for more detailed info SW consultation for discharge plan and social issues Med management Remeron 15 mg at the nighttime will be continued for depression as well as insomnia Klonopin 0.5 mg twice a day will be continued for anxiety and restless behavior Haloperidol 0.5 mg twice a day will be continued for delirium benadrlyl 12.5mg po hs PNR for insomnia Antibiotics for urinary tract infection Family involvement Follow up on labs Will monitor closely Pt was educated about risk/benefits and alternatives of medications, coping strategies (safety plan, suicide prevention), relapse prevention, importance of follow up with psychiatrist and therapist, stay away from drugs/alcohol/smoking Estimated Date of D/C: 04/06/17 (we'll monitor closely)
[2017-04-05 07:31] VITALS: BP 141/73; PULSE 90; RESP 20
[2017-04-05] MEDS: Lidocaine 5% Patch TD SCH (09:01)
[2017-04-05] MEDS: Tmp-Smz 800 mg-160 mg DS Tab PO SCH ×2 (09:01→16:43)
[2017-04-05] MEDS: Multivitamin Therapeutic Tab PO SCH (09:01)
--- NOTE | 2017-04-05 16:42 | PCM.PYCHPN ---
Psychiatric Progress Note - Psychiatric Progress Note Patient seen today, length of contact: 30 minutes Patient Chief Complaint: pt has just word salad, no meaningful conversation possible Problems Identified/Issues Discussed: this creative services writer attempted to discuss treatment plan with the patient, but patient is here confused, has advanced dementia. This creative services writer gave a call to patient GIA (correction to my previous note), discussed: Suicide/ homicide prevention, past psychiatric h/o, current psychiatric symptoms, medical problems, risk/benefits and alternatives of medications, medications compliance, coping strategies, substance abuse h/o, relapse prevention, importance of follow up with psychiatrist and therapist, discharge plan. Medical Problems: patient has advanced dementia Urinary tract infection History of falls COPD kephoscoliosis Diagnostic Results: 03/31/17 17:22 03/31/17 17:22 Lab Results 04/01/17 07:00: RPR Nonreactive 04/01/17 07:00: TSH 3rd Generation 0.66 04/01/17 07:00: Fasting Glucose 111 H, Triglycerides 160, Cholesterol 216 H, LDL Cholesterol Direct 150 H, HDL Cholesterol 43 03/31/17 19:18: Urine Opiates Screen Negative, Urine Methadone Screen Negative, Ur Barbiturates Screen Negative, Ur Phencyclidine Scrn Negative, Ur Amphetamines Screen Negative, U Benzodiazepines Scrn Negative, U Oth Cocaine Metabols Negative, U Cannabinoids Screen Negative 03/31/17 19:18: Urine Color Yellow, Urine Appearance Sl cloudy, Urine pH 6.0, Ur Specific [place] 1.025, Urine Protein Negative, Urine Glucose (UA) Negative, Urine Ketones Negative, Urine Blood Small H, Urine Nitrate Positive H, Urine Bilirubin Negative, Urine Urobilinogen 0.2, Ur Leukocyte Esterase Small H, Urine RBC 5 - 10, Urine WBC 5 - 10, Ur Epithelial Cells 3 - 4, Urine Bacteria Many 03/31/17 17:22: Alcohol, Quantitative < 10 03/31/17 17:22: Salicylates < 1 L, Acetaminophen < 10.0 L 03/31/17 17:22: Sodium 140, Potassium 3.8, Chloride 102, Carbon Dioxide 27, Anion Gap 14, BUN 26 H, Creatinine 0.7, Est GFR ( Amer) > 60, Est GFR ( Non-Af Amer) > 60, Random Glucose 158 H, Calcium 9.9, Total Bilirubin 0.4, AST 28, ALT 36, Alkaline Phosphatase 113, Total Protein 7.1, Albumin 4.2, Globulin 2.8, Albumin/Globulin Ratio 1.5 03/31/17 17:22: WBC 7.7, RBC 4.79, Hgb 14.6, Hct 44.5, MCV 92.9, MCH 30.5, MCHC 32.8, RDW 13.0, Plt Count 244, MPV 9.5, Gran % 68.4 H, Lymph % (Auto) 24.8, [place] % (Auto) 5.7, Eos % (Auto) 1.0 L, Baso % (Auto) 0.1, Gran # 5.29, Lymph # 1.9, [place] # 0.4, Eos # 0.1, Baso # 0.01 Vital Signs Temp Pulse Resp BP Pulse Ox 04/02/17 07:00 97.6 F 86 16 175/86 H 100 04/01/17 17:08 83 154/89 H 04/01/17 08:48 88 152/94 H 04/01/17 07:00 98.0 F 88 20 152/94 H 04/01/17 00:30 98.1 F 96 H 22 186/92 H 04/01/17 00:10 86 18 152/88 H 99 03/31/17 23:45 98.1 F 100 H 18 170/100 H 97 03/31/17 19:05 98.5 F 90 18 193/76 H 95 DSM 5 Symptoms Update: Patient is a 76 yo female with history of Major Depression, Anxiety Disorder, Alzheimers dementia who was transferred from [facility] for increase agitation and aggressive behavior towards staff. Patient's marine driller, Dr. Mir evaluated patient and ordered a transfer for "re-adjustment of medications". patient was seen and examined today at the [facility] area, pt is off 1:1 pt is calm but very confused, wonders in the unit but easy to be redirected no agitated or aggressive behavior pt is compliant with meds, no side effects observed or reported. 04/04/17 Patient POA Ramona Spangler (daughter in law) contacted this creative services writer as per POA patient does have advanced dementia patient does not have history of agitated or aggressive behavior, patient does not have history of being violent, this creative services writer educated POA about risk, benefits, alternatives of the medications as well as potential diagnosis and treatment plan, family was appreciative. "staff is great, we are very happy with the services". Diagnostic Results: Alzheimers Dementia with behavioral disturbance, advanced Major Depression by history Anxiety Disorder by history delirium due to UTI is better Medication Change: Yes (haldol was increased at am 0.5mg yesterday ) Medical Record Reviewed: Yes Mental Status Examination - Cognitive Function Orientation: Person Attention: Poor (somewhat better) Concentration: Poor (somewhat better) Association: Loose Fund of Knowledge: Poor - Mood Mood: Neutral - Affect Affect: Constricted (but more reactive today) - Speech Speech: Soft - Formal Thought Process Formal Thought Process: Delusions, Loosening of associations - Suicidal Ideation Suicidal Ideation: No - Homicidal Ideation Homicidal Ideation: No Goal/Treatment Plan - Goal/Treatment Plan Need for Continued Stay: Remain at risks for inpatient hospitalization, Severe depression anxiety, Discharge may exacerbated symptoms, Severe functional impairment Progress Toward Problem(s) and Goals/Treatment Plan: Milieu/structure/supportive therapy pt is off 1:1 04/05/17 Medical consult appreciated, see medical team note for more detailed info SW consultation for discharge plan and social issues Med management Remeron 15 mg at the nighttime will be continued for depression as well as insomnia Klonopin 0.5 mg twice a day will be continued for anxiety and restless behavior Haloperidol 0.5 mg twice a day will be continued for delirium benadrlyl 12.5mg po hs PNR for insomnia Antibiotics for urinary tract infection Family involvement Follow up on labs Will monitor closely Pt was educated about risk/benefits and alternatives of medications, coping strategies (safety plan, suicide prevention), relapse prevention, importance of follow up with psychiatrist and therapist, stay away from drugs/alcohol/smoking Estimated Date of D/C: 04/06/17 (we'll monitor closely)
--- NOTE | 2017-04-05 19:31 | PCM.RRT ---
<Natalio Shearer - Last Filed: 04/05/17 19:36> [employer] Nurse Assessment - Situation Date: 04/05/17 Time [employer] was called: 18:51 [employer] Responder Arrival Time: 18:53 [employer] Location:: Psychiatry Unit Room Number: 513 [employer] Reason for Call: O2 Saturation below 90%, Looks Sicker (appeared purple) I.Reason for [employer] - A) Acute Change in Patient: (Select all that apply): Staff member or family is worried about patient ( appeared purple/grossly cyanotic), Acute change in SpO2 less Subjective: House Physician Resident Natalio Shearer, PGY-2 IM Rapid response called at 1851, responded immediately. As per Psych unit staff, patient found lying in bed grossly cyanotic appearing, "appeared purple," so rapid response called. Patient was sat up by staff, pulse ox placed, while other staff when to obtain portable oxygen for patient. Sats on arrival 88%, improved to 91-92% on room air while patient sitting up, improved to 98% while patient speaking to staff. Not overtly tachypnic or in gross respiratory distress on arrival. Patient conversant without dyspnea, not speaking full sentences but not due to shortness of breath (patient with dementia/alzheimer's dementia as per charting). Vitals obtained at bedside concerning for systolic blood pressure > 190. Of note, informed by psych staff that patient received a dose of ultram approx 15 minutes prior to event leading to rapid response. Reported history of Alzheimer dementia, COPD, Patient found to be hemodynamically stable on exam, so will be transferred to the ED for additional workup, control of blood pressure, and possible admission to the hospital. Transported to ED, case signed out to ED physician (Dr. Hernandez). Patient seen, reviewed, and discussed with responding hospitalist attending, Dr. Ervin. - Neurological Status Other (Please specify): Confused/Demented (baseline as per charting) - Respiratory Oxygen Delivery Method: Room Air (initially satting 88% on room air, improved to 91-92% while sitting up and 98% during speech) - Constitutional Appears: Non-toxic, No Acute Distress, Older Than Stated Age, Chronically Ill - Head Head Exam: ATRAUMATIC, NORMAL INSPECTION, NORMOCEPHALIC - Eyes Eye Exam: EOMI (not following commands for EOMI, but able to track staff across room appropriately), Normal appearance. absent: Conjunctival injection, Scleral icterus - Respiratory Exam Respiratory Exam: Decreased Breath Sounds (mildly decreased breath sounds diffusely), Rhonchi (bilateral upper field ronchi, mild-moderate), NORMAL BREATHING PATTERN. absent: Accessory Muscle Use, Chest Wall Tenderness, Clear to Ausculation Bilateral, Rales, Wheezes, Respiratory Distress, Stridor Additional comments: wet-sounding breath sounds and cough - Cardiovascular Exam Cardiovascular Exam: REGULAR RHYTHM, RRR, +S1, +S2. absent: Bradycardia, Tachycardia, Clicks, Irregular Rhythm, JVD, +S4 Additional comments: consistent 80's HR on portable monitor, RRR consistently, no arrhythmias noted - GI/Abdominal Exam GI & Abdominal Exam: Soft, Normal Bowel Sounds - Neurological Exam Additional exam: AAOx1 (self only), at baseline mentation as per prior charting, follows some commands with repeat prompting and visualization, spontaneous movement of all extremities noted, poor gait requiring assist from staff to transition from bed to stretcher - Extremities Exam Extremities Exam: Full ROM, Normal Inspection. absent: Pedal Edema Plan - Assessment of Findings&Treatment Plan -Oxygenation improved on room air with stimulation; and with hx of COPD, baseline O2 likely low 90's%; -Possible respiratory suppression 2/2 opioid medication, hold further opioids at this time -Supplemental O2 not indicated at this time as O2 has returned to acceptable levels and want to avoid over-oxygenation in COPD to prevent suppression of respiratory drive -Transferred to ED for further workup and possible admission Signed out to ED physician <Lauro Ervin - Last Filed: 04/07/17 08:03> [employer] Nurse Assessment - Vital Signs Vital Sign: Rapid Response Vital Sign Blood Pressure 190/89 Pulse Rate 90 Respiratory Rate 24 Oxygen Saturation 89 - Vital Signs at end of [employer] Vital Signs at end of [employer]: Rapid Response End Vital Sign Blood Pressure 139/99 Pulse Rate 82 Respiratory Rate 20 O2 Sat by Pulse Oximetry 94 Attending/Attestation - Attestation I have personally seen and examined this patient.: Yes I have fully participated in the care of the patient.: Yes I have reviewed all pertinent clinical information, including history, physical exam and plan: Yes Notes (Text): 04/07/17 08:02 Attending note; The patient was seen and examined during rapid response. Patient was hypoxic briefly. Currently oxygen saturation is 95%. Blood pressure is elevated. Patient is not in any acute distress. History not available due to dementia. Chart reviewed. Transfer the patient to ER. Further workup in ER. Case endorsed to ER physician Dr. Allen.
--- NOTE | 2017-04-06 17:40 | PCM.PYCHDC ---
Mental Status Examination - Mental Status Examination Orientation: Person Memory: Impaired Mood: Neutral Affect: Constricted Speech: Soft Attention: Poor (Because of dementia) Concentration: Poor (because of dementia) Association: Loose (chronic) Fund of Knowledge: Poor (chronic) Formal Thought Process: No Impairment (patient has disorganized thought processes due to dementia) Description of patient's judgement and insight: no insight, because of dementia Psychotic Thoughts and Behaviors: disorganized thought process chronic, due to dementia Suicidal Ideation: No Current Homicidal Ideation?: No Plan: patient was not even able to comprehend suicidal ideation Discharge Summary - Discharge Note Reason for Hospitalization: change in mental status, delirium on dementia,aggressive behavior Psychiatric History (includes Medical, Family, Personal Hx): history of dementia , history of mood disorder as well as anxiety Laboratory Data: 03/31/17 17:22 03/31/17 17:22 Lab Results 04/01/17 07:00: RPR Nonreactive 04/01/17 07:00: TSH 3rd Generation 0.66 04/01/17 07:00: Fasting Glucose 111 H, Triglycerides 160, Cholesterol 216 H, LDL Cholesterol Direct 150 H, HDL Cholesterol 43 03/31/17 19:18: Urine Opiates Screen Negative, Urine Methadone Screen Negative, Ur Barbiturates Screen Negative, Ur Phencyclidine Scrn Negative, Ur Amphetamines Screen Negative, U Benzodiazepines Scrn Negative, U Oth Cocaine Metabols Negative, U Cannabinoids Screen Negative 03/31/17 19:18: Urine Color Yellow, Urine Appearance Sl cloudy, Urine pH 6.0, Ur Specific [place] 1.025, Urine Protein Negative, Urine Glucose (UA) Negative, Urine Ketones Negative, Urine Blood Small H, Urine Nitrate Positive H, Urine Bilirubin Negative, Urine Urobilinogen 0.2, Ur Leukocyte Esterase Small H, Urine RBC 5 - 10, Urine WBC 5 - 10, Ur Epithelial Cells 3 - 4, Urine Bacteria Many 03/31/17 17:22: Alcohol, Quantitative < 10 03/31/17 17:22: Salicylates < 1 L, Acetaminophen < 10.0 L 03/31/17 17:22: Sodium 140, Potassium 3.8, Chloride 102, Carbon Dioxide 27, Anion Gap 14, BUN 26 H, Creatinine 0.7, Est GFR ( Amer) > 60, Est GFR ( Non-Af Amer) > 60, Random Glucose 158 H, Calcium 9.9, Total Bilirubin 0.4, AST 28, ALT 36, Alkaline Phosphatase 113, Total Protein 7.1, Albumin 4.2, Globulin 2.8, Albumin/Globulin Ratio 1.5 03/31/17 17:22: WBC 7.7, RBC 4.79, Hgb 14.6, Hct 44.5, MCV 92.9, MCH 30.5, MCHC 32.8, RDW 13.0, Plt Count 244, MPV 9.5, Gran % 68.4 H, Lymph % (Auto) 24.8, [place] % (Auto) 5.7, Eos % (Auto) 1.0 L, Baso % (Auto) 0.1, Gran # 5.29, Lymph # 1.9, [place] # 0.4, Eos # 0.1, Baso # 0.01 Vital Signs Temp Pulse Resp BP Pulse Ox 04/05/17 07:30 98.4 F 90 20 141/73 04/04/17 16:38 72 114/60 04/04/17 16:00 72 114/60 04/04/17 10:10 106 H 139/83 04/04/17 07:10 98.4 F 106 H 139/83 04/03/17 15:00 71 119/69 04/02/17 07:00 97.6 F 86 16 175/86 H 100 04/01/17 17:08 83 154/89 H 04/01/17 08:48 88 152/94 H 04/01/17 07:00 98.0 F 88 20 152/94 H 04/01/17 00:30 98.1 F 96 H 22 186/92 H 04/01/17 00:10 86 18 152/88 H 99 03/31/17 23:45 98.1 F 100 H 18 170/100 H 97 03/31/17 19:05 98.5 F 90 18 193/76 H 95 Consultations:: List each consultation separately and include: 1. Reason for request. 2. Findings. 3. Follow-up Consultations: medical consult appreciated, patient was started on antibiotics for urinary tract infection Summary of Hospital Course include:: 1. Description of specific treatment plan utilized for patients during their course of treatmen. 2. Summarize the time- course for resolution of acute symptoms and/or regressed behaviors. 3. Describe issues identified and worked on during hospitalization. 4. Describe medication utilized. 5. Describe medical problems identified and treated. 6. Reassessment of suicide risk Summary of Hospital Course: patient was transferred [facility] the prison for evaluation and stabilization of disorganized as well as aggressive behavior most likely was related to urinary tract infection as well as delirium. Patient is a 76 yo female with history of Major Depression, Anxiety Disorder, Alzheimers dementia who was transferred from [facility] for increase agitation and aggressive behavior towards staff. Patient's bait packer, Dr. Mir evaluated patient and ordered a transfer for "re-adjustment of medications". patient appeared to be very confused, no meaningful conversation possible. Patient does not know where she is, patient asked this radio script writer if she knows where she is. Patient also was looking for her 74-year-old mother, off note patient is 76 years old herself. As per staff patient has sundowning symptoms where she appears to be more confused and restless that's why she is on one-to-one which was started by . Patient POA Ramona Spangler (daughter in law) contacted this radio script writer as per POA patient does have advanced dementia patient does not have history of agitated or aggressive behavior, patient does not have history of being violent, this radio script writer educated POA about risk, benefits, alternatives of the medications as well as potential diagnosis and treatment plan, family was appreciative. "staff is great, we are very happy with the services". dr. Polo added haloperidol 0.5 mg twice a day, continued with klonopin 0.5 mg po bid, remeron 15 mg HS at her prison. overall patient tolerated medications well, no side effects observed or reported. patient was improving, no behavioral incidents, this radio script writer was planning to discharge patient today 04/06/17 but unfortunately patient needed to be transferred to the emergency room yesterday at the evening time for respiratory distress, patient was found to be blue in color, was gasping for air, patient needed to be transferred to the emergency room. staff was asked to call patient POA and let family know what is going on with the patient. In the emergency room patient POA, son came over and wanted to take patient to [place] because family lives closer there. as per record, patient was admitted to telemetry unit at [facility]. patient is to be followed up by psychiatry team as a consult, to follow up on the mental status. patient was stabilized on the following medications: Remeron 15 mg at the nighttime will be continued for depression as well as insomnia Klonopin 0.5 mg twice a day will be continued for anxiety and restless behavior Haloperidol 0.5 mg twice a day will be continued for delirium benadrlyl 12.5mg po hs PNR for insomnia Antibiotics for urinary tract infection - Diagnosis (1) Delirium due to another medical condition Status: Chronic Priority: High (2) Dementia Status: Acute Priority: Medium - Final Diagnosis (DSM 5) Condition upon Discharge: GUARDED Disposition: OTHER INSTITUTION Follow-up Treatment Plan: Family involvement Follow up on labs Will monitor closely Pt was educated about risk/benefits and alternatives of medications, coping strategies (safety plan, suicide prevention), relapse prevention, importance of follow up with psychiatrist and therapist, stay away from drugs/alcohol/smoking - Smoking Cessation Smoking Cessation Medication prescribed: No Reason for not providing: denies smoking - Antipsychotic Medications Pt discharged on 2 or more routine antipsychotic medications: No
== END 2017-04-05 19:30 | disposition left against medical advice (07) | DRG 57 ==
LOC: ED 16:54 → ERH 23:26 → PSYC 04-01 00:30
PROVIDERS: ADMIT Psychiatry & Neurology Psychiatry; ATTEND Psychiatry & Neurology Psychiatry
DX: G30.9 Alzheimer's disease, unspecified (principal); F02.81 Dementia in other diseases classified elsewhere, unspecified severity, with behavioral disturbance; J44.9 Chronic obstructive pulmonary disease, unspecified; N39.0 Urinary tract infection, site not specified; F32.9 Major depressive disorder, single episode, unspecified; F41.9 Anxiety disorder, unspecified; G47.00 Insomnia, unspecified; M41.9 Scoliosis, unspecified; Z91.81 History of falling; Z87.891 Personal history of nicotine dependence

== ENCOUNTER 2017-04-05 19:11 | Emergency (ER) | payer MEDICARE, OTHER ==
--- NOTE | 2017-04-05 19:24 | ED PDOC ---
Arrival/HPI - General Time Seen by Provider: 04/05/17 19:15 Historian: Patient - History of Present Illness Narrative History of Present Illness (Text): 04/05/17 19:24 76 year old female, whose past medical history includes Alzheimer's dementia, COPD, kyphoscoliosis and anxiety, presents to the emergency department from the [facility] psych floor found unresponsive and cyanotic. A rapid response was called. Nurse Orion reports "patient was found in bed, her face was turned blue". Patient is awake and alert. ROS Limited due to patient's mental state of dementia. Time/Duration: Prior to Arrival Symptom Onset: Sudden Symptom Course: Improving Activities at Onset: Light Past Medical History - Provider Review Nursing Documentation Reviewed: Yes - Tetanus Immunization Tetanus Immunization: Unknown - Cardiac Hx Cardiac Disorders: No Hx Hypertension: No - Pulmonary Hx Tuberculosis: No - Neurological HX Cerebrovascular Accident: No Hx Seizures: No - Hematological/Oncological Hx Cancer: No - Genitourinary/Gynecological Hx Sexually Transmitted Diseases: No - Psychiatric Hx Substance Use: No Family/Social History - Physician Review Nursing Documentation Reviewed: Yes Family/Social History: No Known Family HX Smoking Status: Former Smoker Hx Alcohol Use: No Hx Substance Use: No Allergies/Home Meds Allergies/Adverse Reactions: Allergies ONIONS Allergy (Uncoded 04/05/17 19:25) ANAPHYLAXIS Home Medications: Home Meds Medication Instructions Recorded Confirmed Clonazepam [Klonopin] 0.5 mg PO ONCE 03/31/17 04/05/17 Lidocaine 5% [Lidoderm] 1 ea TD Q12 03/31/17 04/05/17 Metoprolol Tartrate [Lopressor] 12.5 mg PO Q12 03/31/17 04/05/17 Mirtazapine [Remeron] 15 mg PO HS 03/31/17 04/05/17 Multivitamin [Daily Ross] 1 tab PO DAILY 03/31/17 04/05/17 traMADol [Ultram] 50 mg PO TID 03/31/17 04/05/17 Review of Systems - Physician Review All systems were reviewed & negative as marked: Yes - Review of Systems Systems not reviewed;Unavailable: Dementia Physical Exam Vital Signs Reviewed: Yes Vital Signs Temp Pulse Resp BP Pulse Ox 04/05/17 20:50 76 17 111/58 L 100 04/05/17 19:30 18 04/05/17 19:29 98.2 F 84 17 117/76 92 L Temperature: Afebrile Blood Pressure: Normal Pulse: Regular Respiratory Rate: Normal Appearance: Positive for: Well-Appearing, Non-Toxic, Comfortable Pain Distress: None Mental Status: Positive for: Confused, other (Alert and awake) - Systems Exam Head: Present: Atraumatic, Normocephalic Pupils: Present: PERRL Extroacular Muscles: Present: EOMI Conjunctiva: Present: Normal Mouth: Present: Moist Mucous Membranes Neck: Present: Normal Range of Motion Respiratory/Chest: Present: Clear to Auscultation, Good Air Exchange. No: Respiratory Distress, Accessory Muscle Use Cardiovascular: Present: Regular Rate and Rhythm, Normal S1, S2. No: Murmurs Abdomen: Present: Normal Bowel Sounds. No: Tenderness, Distention, Peritoneal Signs Back: Present: Normal Inspection Upper Extremity: Present: Normal Inspection. No: Cyanosis, Edema Lower Extremity: Present: Normal Inspection. No: Edema Neurological: Present: GCS=15, CN II-XII Intact, Speech Normal Skin: Present: Warm, Dry, Normal Color. No: Rashes Psychiatric: Present: Alert, Normal Insight, Other (Confused) Medical Decision Making ED Course and Treatment: 04/05/17 19:24 Impression: 76 year old female presents for a rapid responds from the [facility] psych floor. patient was unresponsive and cyanotic. Patient is currently awake and alert. Plan: -- Labs -- 1:1 Sitter Observation -- EKG -- Chest X-ray -- Reassess and disposition Prior Visits: Notes and results from previous visits were reviewed. Patient was last seen in the emergency department on 03/31/16 presents for aggresive behavior to residents. Patient was admitted. Progress Notes: EKG shows NSR at [address]/T changes. Interpreted by me. 04/05/17 22:05 CXR Impression: As read by me, NAD, shows poor inspiration. 04/05/17 22:06 Case discussed with medical receptionist and Dr. Alee Lambert who is aware and agrees with the plan. Patient will be admitted for observation for syncope. - Lab Interpretations Lab Results: 04/05/17 19:45 04/05/17 19:45 Lab Results 04/05/17 19:45: Sodium 139, Potassium 4.4, Chloride 104, Carbon Dioxide 24, Anion Gap 16, BUN 26 H, Creatinine 1.0, Est GFR ( Amer) > 60, Est GFR ( Non-Af Amer) 54, Random Glucose 143 H, Calcium 9.7, Total Bilirubin 0.4, AST 26 , ALT 28, Alkaline Phosphatase 109, Troponin I < 0.01, Total Protein 6.9, Albumin 4.1, Globulin 2.8, Albumin/Globulin Ratio 1.5 04/05/17 19:45: D-Dimer, Quantitative 226 04/05/17 19:45: WBC 10.1 D, RBC 4.80, Hgb 14.9, Hct 44.8, MCV 93.3, MCH 31.0, MCHC 33.3, RDW 13.3, Plt Count 274, MPV 9.5, Gran % 74.3 H, Lymph % (Auto) 18.4 L, [place] % (Auto) 5.9, Eos % (Auto) 1.2 L, Baso % (Auto) 0.2, Gran # 7.53 H, Lymph # 1.9, [place] # 0.6, Eos # 0.1, Baso # 0.02 I have reviewed the lab results: Yes - RAD Interpretation Radiology Orders: 04/05/17 21:24 CHEST PORTABLE [RAD] Stat - Scribe Statement The provider has reviewed the documentation as recorded by the Mark Cardoza Provider Scribe Attestation: All medical record entries made by the Scribe were at my direction and personally dictated by me. I have reviewed the chart and agree that the record accurately reflects my personal performance of the history, physical exam, medical decision making, and the department course for this patient. I have also personally directed, reviewed, and agree with the discharge instructions and disposition. Disposition/Present on Arrival - Present on Arrival Any Indicators Present on Arrival: No History of DVT/PE: No History of Uncontrolled Diabetes: No Urinary Catheter: No History Surgical Site Infection Following: None - Disposition Have Diagnosis and Disposition been Completed?: Yes Diagnosis: Syncope and collapse Disposition: HOSPITALIZED Disposition Time: 23:15 Patient Plan: Observation, Telemetry Patient Problems: Current Active Problems Problem Status Onset Dementia Acute Syncope and collapse Acute Condition: IMPROVED Discharge Instructions (ExitCare): Syncope (ED) Referrals: Kylee Pérez, [Primary Care Provider] - Follow up with primary
[2017-04-05 19:25] VITALS: BMI 21.5
[2017-04-05 19:31] VITALS: TEMP 98.2
[2017-04-05 19:57] LABS: BASO # 0.02 K/mm3 (0.0-2.0); BASO % 0.2 % (0.0-3.0); EOS # 0.1 (0.0-0.7); EOS % 1.2 % (1.5-5.0); GRAN # 7.53 (1.4-6.5); GRAN % 74.3 % (50.0-68.0); HEMOGLOBIN 14.9 g/dL (12.0-16.0); LYMPH # 1.9 (1.2-3.4); LYMPH % 18.4 % (22.0-35.0); MEAN CELL VOLUME 93.3 fl (80.0-105.0); MEAN CORPUSCULAR HGB CONC 33.3 g/dl (31.0-37.0); MEAN PLATELET VOLUME 9.5 fl (7.0-11.0); MONO # 0.6 (0.1-0.6); MONO % 5.9 % (1.0-6.0); RBC 4.8 10^6/uL (3.5-6.1); RED CELL DISTRIBUTION WIDTH 13.3 % (11.5-14.5); WHITE BLOOD COUNT 10.1 10^3/ul (4.5-11.0)
[2017-04-05 20:13] LABS: ALB/GLOB RATIO 1.5 (1.1-1.8); ALBUMIN 4.1 g/dL (3.0-4.8); ALT/SGPT 28 U/L (7-56); AST/SGOT 26 U/L (14-36); BLOOD UREA NITROGEN 26 mg/dL (7-21); CALCIUM 9.7 mg/dL (8.4-10.5); GFR AFRICAN-AMERICAN > 60; GFR NON-AFRICAN AMERICAN 54; TROPONIN I < 0.01 ng/mL
[2017-04-05 23:15] VITALS: RESP 18
[2017-04-06 01:15] VITALS: BP 130/88; PULSE 76; O2SAT 95
[2017-04-06] MEDS ORDERED: Albuterol-Ipratrop 3 mg / 0.5 (3 ml) UD IH SCH (02:00)
--- NOTE | 2017-04-06 05:30 | CP.PCM.HP ---
History of Present Illness - History of Present Illness History of Present Illness: Mrs. Spangler is a 76 year old female with a past medical history significant for alzheimer's dementia, COPD, kyphoscoliosis and anxiety who presents after she was found to be cyanotic and hypoxic in the [facility] [place] [facility] Patient was reported to be found with a "purple" appearance and to have an oxygen saturation of 88%. This was corrected with no interventions and patient regained adequate oxygen saturation at 98% on room air. Currently, patient noted to be oriented to person only and with 1:1 observation. She has no complaints at this time. She denies fever, chills, headache, changes in her vision, rhinorrhea, ear pain/discharge, sore throat, dysphagia, chest pain, palpitations, leg swelling, orthopnea, SOB, cough, wheezing, hemoptysis, abdominal pain, N/V, diarrhea, constipation, melena, hematochezia, burning/pain with urination, urinary frequency, hematuria, skin changes, joint pain, or any numbness/tingling/weakness of any extremity. In the ED, a chest x-ray showed no acute disease and patient found to be hemodynamically stable with no significant findings on lab work, including CBC and CMP. PMH: Alzheimer's dementia, COPD, kyphoscoliosis and anxiety PSH: Denied Family History: Denied Social History: Denies tobacco, alcohol or illicit drug use; Son is POA; [facility] resident Allergies: Onions Home Medications: As per MAY PMD: Dr. Fowler POA: Mark Spangler Present on Admission - Present on Admission Any Indicators Present on Admission: No Review of Systems - Review of Systems Review of Systems: As stated in HPI, otherwise negative Past Patient History - Infectious Disease Hx of Infectious Diseases: None - Tetanus Immunizations Tetanus Immunization: Unknown - Past Social History Smoking Status: Former Smoker - CARDIAC Hx Cardiac Disorders: No Hx Hypertension: No - PULMONARY Hx Tuberculosis: No - NEUROLOGICAL HX Cerebrovascular Accident: No Hx Seizures: No - HEMATOLOGICAL/ONCOLOGICAL Hx Cancer: No - GENITOURINARY/GYNECOLOGICAL Hx Sexually Transmitted Disorders: No - PSYCHIATRIC Hx Substance Use: No - ANESTHESIA Hx Anesthesia: No Meds Allergies/Adverse Reactions: Allergies Allergy/AdvReac Type Severity Reaction Status Date / Time ONIONS Allergy ANAPHYLAXIS Uncoded 04/05/17 19:25 Physical Exam - Constitutional Appears: Well, Confused - Head Exam Head Exam: ATRAUMATIC, NORMAL INSPECTION, NORMOCEPHALIC - Eye Exam Eye Exam: EOMI, Normal appearance, PERRL. absent: Conjunctival injection, Nystagmus, Periorbital swelling, Periorbital tenderness, Scleral icterus Pupil Exam: NORMAL ACCOMODATION, PERRL. absent: Fixed, Irregular, Miosis, Mydriatic, Unequal - ENT Exam ENT Exam: Mucous Membranes Moist, Normal Exam - Neck Exam Neck exam: Positive for: Full Rom, Normal Inspection. Negative for: Lymphadenopathy, Meningismus, Tenderness, Thyromegaly - Respiratory Exam Respiratory Exam: Clear to Auscultation Bilateral, NORMAL BREATHING PATTERN. absent: Accessory Muscle Use, Chest Wall Tenderness, Decreased Breath Sounds, Prolonged Expiratory Phase, Rales, Rhonchi, Wheezes, Respiratory Distress, Stridor - Cardiovascular Exam Cardiovascular Exam: REGULAR RHYTHM, RRR, +S1, +S2. absent: Bradycardia, Tachycardia, Clicks, Diastolic murmur, Gallop, Irregular Rhythm, JVD, Rubs, +S4 , Systolic Murmur - GI/Abdominal Exam GI & Abdominal Exam: Normal Bowel Sounds, Soft. absent: Bruit, Diminished Bowel Sounds, Distended, Firm, Guarding, Hernia, Hyperactive Bowel Sounds, Hypoactive Bowel Sounds, Mass, Organomegaly, Pulsatile Mass, Rebound, Rigid, Tenderness - Extremities Exam Extremities exam: Positive for: full ROM, normal capillary refill, normal inspection, pedal pulses present. Negative for: calf tenderness, joint swelling , pedal edema, tenderness - Back Exam Back exam: FULL ROM, NORMAL INSPECTION. absent: CVA tenderness (L), CVA tenderness (R), muscle spasm, paraspinal tenderness, rash noted, tenderness, vertebral tenderness - Neurological Exam Neurological exam: Alert, CN II-XII Intact, Oriented x3 (Oriented to self only) - Psychiatric Exam Psychiatric exam: Normal Affect, Normal Mood - Skin Skin Exam: Dry, Intact, Normal Color, Warm Results - Vital Signs Recent Vital Signs: Last Vital Signs Temp 98.2 F 04/06/17 01:06 Pulse 76 04/06/17 01:06 Resp 18 04/06/17 01:06 BP 130/88 04/06/17 01:06 Pulse Ox 95 04/06/17 01:06 - Labs Result Diagrams: 04/05/17 19:45 04/05/17 19:45 Assessment & Plan - Assessment and Plan (Free Text) Assessment: 76 year old female with a past medical history significant for alzheimer's dementia, COPD, kyphoscoliosis and anxiety who presents after she was found to be cyanotic and hypoxic in the [facility] [place] [facility]. In the ED, a chest x-ray showed no acute disease and patient found to be hemodynamically stable with no significant findings on lab work, including CBC and CMP. Plan: 1. COPD -Duoneb 3ml IH [id number] 2. History of Anxiety -Holding psychiatric medications until psychiatry re-evaluates patient -Psych consulted GI Prophylaxis: Protonix DVT Prophylaxis: SCD's Diet: Heart Healthy Patient seen and case discussed with attending, Dr. Francisco Lambert. - Date & Time Date: 04/05/17 Time: 21:25 Decision To Admit - Pt Status Changed To: Hospital Disposition Of: Observation - . Bed Request Type: Telemetry
--- NOTE | 2017-04-06 05:38 | CP.PCM.DIS ---
Provider - Provider Date of Admission: 04/05/17 21:25 Attending physician: Xin Snider MD Primary care physician: Kylee Profile Required Time Spent in preparation of Discharge (in minutes): 20 Hospital Course - Lab Results Lab Results: Most Recent Lab Values WBC 10.1 10^3/ul (4.5-11.0) D 04/05/17 19:45 RBC 4.80 10^6/uL (3.5-6.1) 04/05/17 19:45 Hgb 14.9 g/dL (12.0-16.0) 04/05/17 19:45 Hct 44.8 % (36.0-48.0) 04/05/17 19:45 MCV 93.3 fl (80.0-105.0) 04/05/17 19:45 MCH 31.0 pg (25.0-35.0) 04/05/17 19:45 MCHC 33.3 g/dl (31.0-37.0) 04/05/17 19:45 RDW 13.3 % (11.5-14.5) 04/05/17 19:45 Plt Count 274 10^3/uL (120.0-450.0) 04/05/17 19:45 MPV 9.5 fl (7.0-11.0) 04/05/17 19:45 Gran % 74.3 % (50.0-68.0) H 04/05/17 19:45 Lymph % (Auto) 18.4 % (22.0-35.0) L 04/05/17 19:45 [place] % (Auto) 5.9 % (1.0-6.0) 04/05/17 19:45 Eos % (Auto) 1.2 % (1.5-5.0) L 04/05/17 19:45 Baso % (Auto) 0.2 % (0.0-3.0) 04/05/17 19:45 Gran # 7.53 (1.4-6.5) H 04/05/17 19:45 Lymph # 1.9 (1.2-3.4) 04/05/17 19:45 [place] # 0.6 (0.1-0.6) 04/05/17 19:45 Eos # 0.1 (0.0-0.7) 04/05/17 19:45 Baso # 0.02 K/mm3 (0.0-2.0) 04/05/17 19:45 D-Dimer, Quantitative 226 ng/mL (0-243) 04/05/17 19:45 Sodium 139 mmol/L (132-148) 04/05/17 19:45 Potassium 4.4 mmol/L (3.6-5.0) 04/05/17 19:45 Chloride 104 mmol/L (98-107) 04/05/17 19:45 Carbon Dioxide 24 mmol/L (21-33) 04/05/17 19:45 Anion Gap 16 (10-20) 04/05/17 19:45 BUN 26 mg/dL (7-21) H 04/05/17 19:45 Creatinine 1.0 mg/dl (0.7-1.2) 04/05/17 19:45 Est GFR ( Amer) > 60 04/05/17 19:45 Est GFR (Non-Af Amer) 54 04/05/17 19:45 Random Glucose 143 mg/dL (70-110) H 04/05/17 19:45 Calcium 9.7 mg/dL (8.4-10.5) 04/05/17 19:45 Total Bilirubin 0.4 mg/dL (0.2-1.3) 04/05/17 19:45 AST 26 U/L (14-36) 04/05/17 19:45 ALT 28 U/L (7-56) 04/05/17 19:45 Alkaline Phosphatase 109 U/L (38-126) 04/05/17 19:45 Troponin I < 0.01 ng/mL 04/05/17 19:45 Total Protein 6.9 g/dL (5.8-8.3) 04/05/17 19:45 Albumin 4.1 g/dL (3.0-4.8) 04/05/17 19:45 Globulin 2.8 gm/dL 04/05/17 19:45 Albumin/Globulin Ratio 1.5 (1.1-1.8) 04/05/17 19:45 - Hospital Course Hospital Course: 76 year old female with a past medical history significant for alzheimer's dementia, COPD, kyphoscoliosis and anxiety who presents after she was found to be cyanotic and hypoxic in the [facility]. Patient was admitted to the telemetry floor for overnight monitoring with the intention of her being transferred to the BHU at [facility] for further inpatient treatment after she was medically optimized and hemodynamically stable. Patient and her POA expressed desire to be transferred to [facility] as this is closer to where patient and POA live. POA retrieved patients belongings and signed AMA form after the risks of leaving against medical advice, including AMI, CVA, sepsis, permanent disability/disfigurement and sudden , were explained and POA verbally expressed understanding. Patient left AMA with transport arranged by POA with verbal expression of his intention to take patient directly to [facility]. - Date & Time of H&P Date of H&P: 04/06/17 Time of H&P: 01:06 Discharge Exam - Head Exam Head Exam: ATRAUMATIC, NORMAL INSPECTION, NORMOCEPHALIC - Eye Exam Eye Exam: EOMI, Normal appearance, PERRL Pupil Exam: NORMAL ACCOMODATION, PERRL - ENT Exam ENT Exam: Mucous Membranes Moist, Normal Exam - Neck Exam Neck exam: Full Rom, Normal Inspection - Respiratory Exam Respiratory Exam: NORMAL BREATHING PATTERN, UNREMARKABLE. absent: Accessory Muscle Use, Chest Wall Tenderness, Decreased Breath Sounds, Prolonged Expiratory Phase, Rales, Rhonchi, Wheezes, Respiratory Distress, Stridor - Cardiovascular Exam Cardiovascular Exam: REGULAR RHYTHM, RRR, +S1, +S2. absent: Bradycardia, Tachycardia, Clicks, Diastolic murmur, Gallop, Irregular Rhythm, JVD, Rubs, +S4 , Systolic Murmur - GI/Abdominal Exam GI & Abdominal Exam: Normal Bowel Sounds, Unremarkable. absent: Bruit, Diminished Bowel Sounds, Distended, Firm, Guarding, Hernia, Hyperactive Bowel Sounds, Hypoactive Bowel Sounds, Mass, Organomegaly, Pulsatile Mass, Rebound, Rigid, Soft, Tenderness - Extremities Exam Extremities exam: full ROM, normal capillary refill, normal inspection (No calf tenderness), pedal pulses present - Back Exam Back exam: NORMAL INSPECTION - Neurological Exam Neurological exam: Alert, CN II-XII Intact - Psychiatric Exam Psychiatric exam: Normal Affect, Normal Mood - Skin Skin Exam: Dry, Intact, Normal Color, Warm Discharge Plan - Follow Up Plan Condition: IMPROVED Disposition: AGAINST MEDICAL ADVICE
[2017-04-06] MEDS ORDERED: Pantoprazole 40 mg EC Tab PO SCH (06:00)
--- NOTE | 2017-04-06 08:15 | RAD ---
HISTORY: sob COMPARISON: 03/31/2017 FINDINGS: LUNGS: No active pulmonary disease. PLEURA: No significant pleural effusion identified, no pneumothorax apparent. CARDIOVASCULAR: Normal. OSSEOUS STRUCTURES: No significant abnormalities. VISUALIZED UPPER ABDOMEN: Normal. OTHER FINDINGS: None. IMPRESSION: No active disease.
[2017-04-06] MEDS ORDERED: Multivitamin Therapeutic Tab PO SCH (10:00)
--- NOTE | 2017-04-06 18:01 | CARD ---
APPROVED REPORT EKG Measurement Heart [id number] <Conclusion> Normal sinus rhythm Nonspecific T wave abnormality Abnormal ECG
== END 2017-04-06 01:06 | disposition left against medical advice (07) ==
LOC: ED 19:11 → ERH 21:25 → UNDOADMOB 21:25
DX: R55 Syncope and collapse (principal); G30.9 Alzheimer's disease, unspecified; F02.80 Dementia in other diseases classified elsewhere, unspecified severity, without behavioral disturbance, psychotic disturbance, mood disturbance, and anxiety; J44.9 Chronic obstructive pulmonary disease, unspecified; Z87.891 Personal history of nicotine dependence

== ENCOUNTER 2017-04-12 17:26 | Inpatient (IN) | payer MEDICARE, MEDICAID ==
[2017-04-12 17:26] VITALS: BMI 21.5
--- NOTE | 2017-04-12 18:30 | ED PDOC ---
Arrival/HPI - General Chief Complaint: Psychiatric Evaluation Time Seen by Provider: 04/12/17 17:30 Historian: Patient, Alf, EMS - History of Present Illness Narrative History of Present Illness (Text): 04/12/17 18:30 76yr old female with hx of dementia BIBA for aggressive behavior in residential. pt denies any complaints in the ER. pt denies cp or sob. denies abdominal pain. denies fever. denies dizziness or headache. no other complaints. Past Medical History - Provider Review Nursing Documentation Reviewed: Yes - Travel History Have you recently traveled outside [place] w/in the past 3 mons?: No - Infectious Disease Hx of Infectious Diseases: None - Tetanus Immunization Tetanus Immunization: Unknown - Cardiac Hx Cardiac Disorders: Yes Hx Hypertension: Yes - Pulmonary Hx Respiratory Disorders: Yes Hx Chronic Obstructive Pulmonary Disease (COPD): Yes Hx Tuberculosis: No - Neurological Hx Neurological Disorder: Yes Hx Alzheimer's Disease: Yes HX Cerebrovascular Accident: No Hx Dementia: Yes Hx Seizures: No - HEENT Hx HEENT Disorder: No - Renal Hx Renal Disorder: No - Endocrine/Metabolic Hx Endocrine Disorders: No - Hematological/Oncological Hx Blood Disorders: No Hx Cancer: No - Integumentary Hx Dermatological Disorder: No - Musculoskeletal/Rheumatological Hx Musculoskeletal Disorders: No - Gastrointestinal Hx Gastrointestinal Disorders: No - Genitourinary/Gynecological Hx Genitourinary Disorders: No Hx Sexually Transmitted Diseases: No - Psychiatric Hx Psychophysiologic Disorder: Yes Hx Anxiety: Yes Hx Depression: Yes Hx Substance Use: No - Anesthesia Hx Anesthesia: No Family/Social History - Physician Review Nursing Documentation Reviewed: Yes Family/Social History: Unknown Family HX Smoking Status: Former Smoker Hx Alcohol Use: No Hx Substance Use: No Allergies/Home Meds Allergies/Adverse Reactions: Allergies ONIONS Allergy (Uncoded 04/12/17 17:39) ANAPHYLAXIS Home Medications: Home Meds Medication Instructions Recorded Confirmed Clonazepam [Klonopin] 0.5 mg PO ONCE 03/31/17 04/05/17 Lidocaine 5% [Lidoderm] 1 ea TD Q12 03/31/17 04/05/17 Metoprolol Tartrate [Lopressor] 12.5 mg PO Q12 03/31/17 04/05/17 Mirtazapine [Remeron] 15 mg PO HS 03/31/17 04/05/17 Multivitamin [Daily Ross] 1 tab PO DAILY 03/31/17 04/05/17 traMADol [Ultram] 50 mg PO TID 03/31/17 04/05/17 Review of Systems - Review of Systems Systems not reviewed;Unavailable: Dementia Constitutional: absent: Fevers Respiratory: absent: SOB Cardiovascular: absent: Chest Pain, Palpitations Gastrointestinal: absent: Abdominal Pain, Vomiting Musculoskeletal: absent: Arthralgias Skin: absent: Rash Neurological: absent: Headache Physical Exam Vital Signs Reviewed: Yes Vital Signs Temp Pulse Resp BP Pulse Ox 04/12/17 20:38 160/98 H 04/12/17 19:24 103/48 L 04/12/17 18:39 77 16 119/67 96 04/12/17 17:55 98.2 F 72 18 119/67 94 L Temperature: Afebrile Blood Pressure: Normal Pulse: Regular Respiratory Rate: Normal Appearance: Positive for: Well-Appearing, Non-Toxic, Comfortable Pain Distress: None Mental Status: Positive for: other (alert) - Systems Exam Head: Present: Atraumatic Pupils: Present: PERRL Extroacular Muscles: Present: EOMI Mouth: Present: Moist Mucous Membranes Neck: Present: Normal Range of Motion Respiratory/Chest: Present: Clear to Auscultation, Good Air Exchange. No: Respiratory Distress, Accessory Muscle Use Cardiovascular: Present: Regular Rate and Rhythm, Normal S1, S2. No: Murmurs Abdomen: No: Tenderness, Distention, Rebound, Guarding Upper Extremity: Present: Normal ROM Lower Extremity: Present: Normal ROM. No: Edema Neurological: Present: GCS=15, Speech Normal Skin: Present: Warm, Dry, Normal Color. No: Rashes Psychiatric: Present: Alert, Oriented x 3 Medical Decision Making ED Course and Treatment: 04/12/17 18:34 Patient is nontoxic well-appearing in no distress vital signs are stable. pt is alert; hx of dementia. no complaints. CBC WNL CMP WNL Tylenol WNL Salicylate WNL Alcohol level WNL Urine drug screen pending UA; pending cxr: wnl ekg NSR at 68b/m no st elevations, [id number] Patient was seen and evaluated by PES screener: josephine Retana; dementia 04/12/17 19:32 pt became aggressive and agitated in er; soft restraints ordered; po ativan ordered. pt placed on 1:1 case was discussed with dr. holman who would like to see the patient in the ER tomorrow morning for re-evaluation. 04/12/17 20:43 pt remains on 1:1 but is very calm in the ER; restraints removed. case signed out to dr. myles pending dr. holman evaluation in the AM. - Lab Interpretations Lab Results: 04/12/17 18:30 04/12/17 18:30 Lab Results 04/12/17 18:30: Alcohol, Quantitative < 10 04/12/17 18:30: Salicylates < 1 L, Acetaminophen < 10.0 L 04/12/17 18:30: Sodium 139, Potassium 4.0, Chloride 102, Carbon Dioxide 26, Anion Gap 15, BUN 24 H, Creatinine 0.8, Est GFR ( Amer) > 60, Est GFR ( Non-Af Amer) > 60, Random Glucose 119 H, Calcium 10.4, Total Bilirubin 0.3, AST 27, ALT 28, Alkaline Phosphatase 110, Total Protein 7.5, Albumin 4.3, Globulin 3.2, Albumin/Globulin Ratio 1.3 04/12/17 18:30: WBC 8.5, RBC 4.95, Hgb 15.4, Hct 46.0, MCV 92.9, MCH 31.1, MCHC 33.5, RDW 13.0, Plt Count 290, MPV 9.6, Gran % 72.6 H, Lymph % (Auto) 20.8 L, [place] % (Auto) 5.6, Eos % (Auto) 0.9 L, Baso % (Auto) 0.1, Gran # 6.18, Lymph # 1.8, [place] # 0.5, Eos # 0.1, Baso # 0.01 - RAD Interpretation Radiology Orders: 04/12/17 17:47 CHEST PORTABLE [RAD] Stat - Medication Orders Current Medication Orders: Discontinued Medications Lorazepam (Ativan) 0.5 mg PO ONCE ONE PRN Reason: Protocol Stop: 04/12/17 19:33 Disposition/Present on Arrival - Present on Arrival History of DVT/PE: No History of Uncontrolled Diabetes: No Urinary Catheter: No History of Decub. Ulcer: No History Surgical Site Infection Following: None - Disposition Referrals: [facility] Ryan Pérez, [Primary Care Provider] - Follow up with primary Forms: [employer] [facility] [employer] [facility] (Japanese)
[2017-04-12 18:50] LABS: BASO # 0.01 K/mm3 (0.0-2.0); BASO % 0.1 % (0.0-3.0); EOS # 0.1 (0.0-0.7); EOS % 0.9 % (1.5-5.0); GRAN # 6.18 (1.4-6.5); GRAN % 72.6 % (50.0-68.0); HEMOGLOBIN 15.4 g/dL (12.0-16.0); LYMPH # 1.8 (1.2-3.4); LYMPH % 20.8 % (22.0-35.0); MEAN CELL VOLUME 92.9 fl (80.0-105.0); MEAN CORPUSCULAR HEMOGLOBIN 31.1 pg (25.0-35.0); MEAN CORPUSCULAR HGB CONC 33.5 g/dl (31.0-37.0); MEAN PLATELET VOLUME 9.6 fl (7.0-11.0); MONO # 0.5 (0.1-0.6); MONO % 5.6 % (1.0-6.0); RBC 4.95 10^6/uL (3.5-6.1); WHITE BLOOD COUNT 8.5 10^3/ul (4.5-11.0)
[2017-04-12 18:58] LABS: ACETAMINOPHEN < 10.0 ug/ml (10.0-20.0); SALICYLATE < 1 mg/dL (2.0-20.0)
[2017-04-12 19:01] LABS: ALB/GLOB RATIO 1.3 (1.1-1.8); ALBUMIN 4.3 g/dL (3.0-4.8); ALT/SGPT 28 U/L (7-56); AST/SGOT 27 U/L (14-36); BLOOD UREA NITROGEN 24 mg/dL (7-21); CALCIUM 10.4 mg/dL (8.4-10.5); GFR AFRICAN-AMERICAN > 60; GFR NON-AFRICAN AMERICAN > 60
--- NOTE | 2017-04-13 07:10 | ED PDOC ---
Physical Exam Vital Signs Reviewed: Yes Vital Signs Temp Pulse Resp BP Pulse Ox 04/13/17 14:43 89 17 160/92 H 100 04/13/17 09:56 92 H 18 178/81 H 97 04/13/17 08:02 98.7 F 90 18 157/88 H 98 04/13/17 06:15 71 20 117/62 100 04/13/17 04:00 68 14 142/70 100 04/13/17 01:30 80 18 112/76 99 04/12/17 23:30 78 18 124/78 98 04/12/17 20:38 160/98 H 04/12/17 19:24 103/48 L 04/12/17 18:39 77 16 119/67 96 04/12/17 17:55 98.2 F 72 18 119/67 94 L Temperature: Afebrile Blood Pressure: Normal Pulse: Regular Respiratory Rate: Normal Medical Decision Making ED Course and Treatment: 04/13/17 07:10 Patient endorsed to me by Dr. Powell at 07:00, pending psych evaluation by Dr. Yumiko Govea. 04/13/17 13:[address] Yumiko Mohamud, who accepts admission to her service. - Lab Interpretations Lab Results: 04/12/17 18:30 04/12/17 18:30 Lab Results 04/13/17 12:10: Urine Opiates Screen Negative, Urine Methadone Screen Negative, Ur Barbiturates Screen Negative, Ur Phencyclidine Scrn Negative, Ur Amphetamines Screen Negative, U Benzodiazepines Scrn Negative, U Oth Cocaine Metabols Negative, U Cannabinoids Screen Negative 04/13/17 12:10: Urine Color Yellow, Urine Appearance Sl cloudy, Urine pH 5.5, Ur Specific [place] >= 1.030, Urine Protein Negative, Urine Glucose (UA) Negative, Urine Ketones Negative, Urine Blood Small H, Urine Nitrate Negative, Urine Bilirubin Negative, Urine Urobilinogen 0.2, Ur Leukocyte Esterase Small H , Urine RBC 2 - 5, Urine WBC 2 - 5, Ur Epithelial Cells 3 - 4, Urine Bacteria Few 04/12/17 18:30: Alcohol, Quantitative < 10 04/12/17 18:30: Salicylates < 1 L, Acetaminophen < 10.0 L 04/12/17 18:30: Sodium 139, Potassium 4.0, Chloride 102, Carbon Dioxide 26, Anion Gap 15, BUN 24 H, Creatinine 0.8, Est GFR ( Amer) > 60, Est GFR ( Non-Af Amer) > 60, Random Glucose 119 H, Calcium 10.4, Total Bilirubin 0.3, AST 27, ALT 28, Alkaline Phosphatase 110, Total Protein 7.5, Albumin 4.3, Globulin 3.2, Albumin/Globulin Ratio 1.3 04/12/17 18:30: WBC 8.5, RBC 4.95, Hgb 15.4, Hct 46.0, MCV 92.9, MCH 31.1, MCHC 33.5, RDW 13.0, Plt Count 290, MPV 9.6, Gran % 72.6 H, Lymph % (Auto) 20.8 L, [place] % (Auto) 5.6, Eos % (Auto) 0.9 L, Baso % (Auto) 0.1, Gran # 6.18, Lymph # 1.8, [place] # 0.5, Eos # 0.1, Baso # 0.01 - RAD Interpretation Radiology Orders: 04/12/17 17:47 CHEST PORTABLE [RAD] Stat - Medication Orders Current Medication Orders: Discontinued Medications Lorazepam (Ativan) 0.5 mg PO ONCE ONE PRN Reason: Protocol Stop: 04/12/17 19:33 Last Admin: 04/12/17 20:00 Dose: 0.5 mg Disposition/Present on Arrival - Present on Arrival Any Indicators Present on Arrival: No History of DVT/PE: No History of Uncontrolled Diabetes: No Urinary Catheter: No History of Decub. Ulcer: No History Surgical Site Infection Following: None - Disposition Have Diagnosis and Disposition been Completed?: Yes Diagnosis: Major depression Disposition: HOSPITALIZED Disposition Time: 13:02 Patient Plan: Admission, Other (Behavioral Health) Patient Problems: Current Active Problems Problem Status Onset Major depression Acute Condition: GOOD
--- NOTE | 2017-04-13 08:29 | RAD ---
HISTORY: pes eval COMPARISON: 04/05/2017 FINDINGS: LUNGS: Minimal infiltrate at right lung base. Small left effusion PLEURA: No significant pleural effusion identified, no pneumothorax apparent. CARDIOVASCULAR: Normal. OSSEOUS STRUCTURES: No significant abnormalities. VISUALIZED UPPER ABDOMEN: Normal. OTHER FINDINGS: None. IMPRESSION: Minimal infiltrate at the right lung base. Small left effusion
--- NOTE | 2017-04-13 11:30 | CARD ---
APPROVED REPORT EKG Measurement Heart [id number] <Conclusion> Normal sinus rhythm STTW changes, more promionent c/w prior ECG 04/05/17
[2017-04-13 12:27] LABS: PH,URINE 5.5 (4.7-8.0); URINE BILIRUBIN NEGATIVE (NEGATIVE); URINE BLOOD SMALL (NEGATIVE); URINE GLUCOSE (UA) NEGATIVE (NEGATIVE); URINE LEUKOCYTE ESTERASE SMALL Leu/uL (NEGATIVE); URINE NITRATE NEGATIVE (NEGATIVE); URINE PROTEIN NEGATIVE mg/dL (<30 mg/dL); URINE UROBILINOGEN 0.2 E.U./dL (<1 E.U./dL)
[2017-04-13 12:28] LABS: URINE APPEARANCE SL CLOUDY (CLEAR); URINE COLOR YELLOW (YELLOW)
[2017-04-13 12:39] LABS: BARBITURATES, UR NEGATIVE (NEGATIVE); BENZODIAZEPINES, UR NEGATIVE (NEGATIVE); OPIATES, UR NEGATIVE (NEGATIVE); PHENCYCLIDINE, UR NEGATIVE (NEGATIVE)
[2017-04-13 12:59] LABS: URINE BACTERIA FEW (NEG)
--- NOTE | 2017-04-13 16:31 | PCM.BM ---
<Sofi Dumont - Last Filed: 04/13/17 16:28> Treatment Plan Problems - Problems identified on initial assessmt agitated/aggressive Date Initiated: 04/13/17 Time Initiated: 16:30 Assessment reference: NA Status: Active highrisk/violence Date Initiated: 04/13/17 Time Initiated: 16:31 Assessment reference: NA Status: Active ineffective impulse control Date Initiated: 04/13/17 Time Initiated: 16:32 Assessment reference: NA Status: Active Treatment assets and liabiliti Patient Assests: good support system Patient Liabilities: imparied memory - Milieu Protocol Maintain good personal hygiene: daily Encourage regular showers, every shift Remind patient to perform daily oral care, every shift Assist patient to perform ADL's Conduct patient checks and document Observation sheet: 1:1 Maintain personal safety: every shift Educate patient to report safety concerns to staff, every shift Monitor environment for contraband/sharps Medication safety: Monitor for expected outcome, potential side effects: every shift, Assess barriers to learning: every shift, Assess readiness for medication education: every shift Family Contact Family involvement: Family/SO is involved Discharge/Continuing Care - Education Needs Education Needs: Patient Medication, Patient Diagnosis/Disease Process, Patient Coping Skills, Patient Personal Hygiene/Grooming - Discharge Discharge Criteria: Tolerates medication w/o severe side effects, Free of paranoid thoughts, Free of agitation, Normal sleep pattern <Yumiko Dumont - Last Filed: 04/14/17 16:11> - Diagnosis (1) Dementia Status: Acute Interventions: 04/14/17 16:11 1:1 monitor pt's wondering behavior safety precaution family involvement Pt will be seen by medical team as needed Medications will be confirmed and resumed Additional consultation by specialists as needed Lab work as needed (CBC, CMP, TSH, free T4, UA, Urine test for females as needed) CXR as needed EKG Physical therapy evaluation as needed <Tiffany Cavazos - Last Filed: 04/17/17 16:11>
[2017-04-13] MEDS ORDERED: Lidocaine 5% Patch TD PRN (17:01)
--- NOTE | 2017-04-14 02:36 | CON ---
DATE: HISTORY OF PRESENT ILLNESS: Patient is a 76-year-old female with long debilitating history of dementia, advanced. Patient had history of aggressive and agitated behavior. Patient was recently discharged from [facility] on 04/05. Patient needed to be transferred to the emergency room because patient has shortness of breath and from the emergency room, patient's family signed the patient out against medical advice and brought the patient to [facility] where she was admitted on telemetry unit. This time, patient was [facility]. Patient presented to be agitated, aggressive, was throwing water towards the patients and staff that is why this display card writer was involved into the patient care. The patient is demented, did not make any sense in the emergency room, but was not agitated or aggressive. Overnight, patient required to be on 0.5 mg of Ativan by mouth, which was given to her at 10:00 p.m. yesterday. This display card writer is very familiar with this patient from the previous admission to the Psychiatric Inpatient Unit. Also this display card writer had prolonged conversation with the patient's psychiatrist, Dr. Wade, from [facility]. This display card writer also had prolonged conversation with the patient's POA, son, Mark Spangler, as well as his , Raomna. Based on the history, the patient was discharged from telemetry unit of [facility] and after discharge, patient was not given Risperdal 0.25 mg at the nighttime and as a result, patient became agitated and patient was referred to the emergency room for evaluation and stabilization. Patient's son (GIA) was willing to sign his mother to the Psychiatric Inpatient Unit for further evaluation and stabilization as well as discussed option for the plan to transfer patient to a Geropsychiatric unit somewhere here in [place]. Patient's son was in agreement with that. This display card writer had prolonged conversation with the medical staff as well. PHYSICAL EXAMINATION: VITAL SIGNS: Seems to be stable. Temperature 98.7, pulse is 89, blood pressure 160/92, respirations 17, oxygen saturation is 100. Medications reviewed. Labs reviewed. Patient's chemistry within normal limits. Urinalysis showed possible urinary tract infection. Toxicology negative for any substances. PAST PSYCHIATRIC HISTORY: Patient has history of depression and anxiety. On top of that, dementia with behavioral disturbances and history of delirium. MENTAL STATUS EXAMINATION: Patient presented to be confused and disoriented, just stares at this display card writer. Patient is status post p.o. Ativan, probably that is why she is so calm. The speech was incoherent, but she only mentioned that she feels cold and extra blanket was provided to the patient. Patient was not able to participate in the interview, was not able to comprehend about hallucinations, suicidality. Insight and judgment seems to be severely impaired. Impulses are unpredictable. IMPRESSION: Dementia with behavioral disturbances. Rule out delirium. Patient has history of depression and anxiety. PLAN: Patient's son, Mark, signed consent for treatment. Social work evaluation recommended. Discussed case with the social sciences research scientist at the Psychiatric Inpatient Unit. We will try to arrange a Neuropsych Unit somewhere here in [place]. Family was contacted, discussed plan with the patient, with the patient's POA, son. Discussed about risks, benefits and alternatives of the Risperdal, which will be resumed. The patient will be seen by medical team, physical therapy evaluation. Patient will be monitored closely. We will initiate one-to-one for this pt, pt has h/o wondering behavior, angry outbursts, multiple medical issues, aggressive outburst. Thank you very much for letting me participate in care of your patient. Should you have any questions give me a call back. Patient will go to the psychiatric inpatient unit for further evaluation and stabilization. Yumiko Dumont MD PATEL
[2017-04-14 08:12] LABS: HDL CHOLESTEROL 49 mg/dL (29-60)
[2017-04-14 08:22] LABS: LDL CHOLESTEROL 169 mg/dL (0-129)
--- NOTE | 2017-04-14 15:21 | PCM.PSYCH ---
Initial Psychiatric Evaluation - Initial Psychiatric Evaluation Type of Admission: Voluntary Legal Status: DPOA Chief Complaint (in patient's own words): pt's son GIA Spangler sign consent for treatment Patient's Reaction to Hospitalization: pt was admitted for evaluation of agitation/meds adjustment History of Present Illness and Precipitating Events: shortly patient is a 76 yo female with history of Major Depression, Anxiety Disorder, Alzheimers dementia who was transferred from [facility] for increase agitation and aggressive behavior towards staff. Patient's psychiatrist Dr. Mir referred pt for further evaluation and stabilization. Pt was admitted to this facility 04/01/17, pt needed to be transferred to ED s/p rapid response and code blue, in the ED pt's son (GIA Flores and his Ramona) signed pt AMA and brought pt to [facility] where pt was on telemetry unit and was started on small dose of risperdal, pt was discharged from [facility] on 04/11/17, at that evening pt became agitated, pt was not given her hs dose of risperdal, and was physically aggressive towards staff and other consumers, was throwing water towards them. Pt's POA signed consent for treatment and was in agreement with the plan of medication adjustment and possible transfer for geriatric-psychiatric unit. pt was initially seen as a communication consultant in ED 04/12/17, please see consultation note for more detailed information. pt was seen today at the treatment team meeting, pt presented very well to compare to the previous admission was able to give relatively appropriate answers on simple questions for example when this singer songwriter asked pt how pt is doing today, pt said "I am well, how are you?", then pt was saying that she is looking for money and her mother, then pt said "probably they are doing something", no meaningful conversation possible. as per staff pt was agitated yesterday at the evening she was trying to bang on the table, but was able to be redirected, pt was given HS dose of Risperdal. pt's family was in agreement with tx plan, son and pt's daughter in law was requesting risperdal to be continued, risk/benefits and alternatives discussed, pt's son said "I agree, all medications could give some sort of side effects". d/c notes from [facility] Telemetry unit reviewed, pt was on Risperdal 0.25hs and will add bid the same dose PRN, will continue with klonopin 0.5 mg po bid, remeron 15 mg HS at her prison, all meds resumed. Past psych h/o: depression, anxiety, h/o delirium, h/o dementia with behavioral disturbances, not known h/o suicidal attempts. Family h/o: as per h/o none Medical h/o: h/o chronic back pain, h/o dementia, h/o syncope no h/o drug abuse, no smoking h/o, no h/o physical/emotional/sexual abuse. overall patient tolerated medications well, no side effects observed or reported. 04/12/17 18:30 04/12/17 18:30 Lab Results 04/14/17 07:30: Triglycerides 141, Cholesterol 248 H, LDL Cholesterol Direct 169 H, HDL Cholesterol 49 04/13/17 12:10: Urine Opiates Screen Negative, Urine Methadone Screen Negative, Ur Barbiturates Screen Negative, Ur Phencyclidine Scrn Negative, Ur Amphetamines Screen Negative, U Benzodiazepines Scrn Negative, U Oth Cocaine Metabols Negative, U Cannabinoids Screen Negative 04/13/17 12:10: Urine Color Yellow, Urine Appearance Sl cloudy, Urine pH 5.5, Ur Specific [place] >= 1.030, Urine Protein Negative, Urine Glucose (UA) Negative, Urine Ketones Negative, Urine Blood Small H, Urine Nitrate Negative, Urine Bilirubin Negative, Urine Urobilinogen 0.2, Ur Leukocyte Esterase Small H , Urine RBC 2 - 5, Urine WBC 2 - 5, Ur Epithelial Cells 3 - 4, Urine Bacteria Few 04/12/17 18:30: Alcohol, Quantitative < 10 04/12/17 18:30: Salicylates < 1 L, Acetaminophen < 10.0 L 04/12/17 18:30: Sodium 139, Potassium 4.0, Chloride 102, Carbon Dioxide 26, Anion Gap 15, BUN 24 H, Creatinine 0.8, Est GFR ( Amer) > 60, Est GFR ( Non-Af Amer) > 60, Random Glucose 119 H, Calcium 10.4, Total Bilirubin 0.3, AST 27, ALT 28, Alkaline Phosphatase 110, Total Protein 7.5, Albumin 4.3, Globulin 3.2, Albumin/Globulin Ratio 1.3 04/12/17 18:30: WBC 8.5, RBC 4.95, Hgb 15.4, Hct 46.0, MCV 92.9, MCH 31.1, MCHC 33.5, RDW 13.0, Plt Count 290, MPV 9.6, Gran % 72.6 H, Lymph % (Auto) 20.8 L, Barton % (Auto) 5.6, Eos % (Auto) 0.9 L, Baso % (Auto) 0.1, Gran # 6.18, Lymph # 1.8, Barton # 0.5, Eos # 0.1, Baso # 0.01 Vital Signs Temp Pulse Resp BP Pulse Ox 04/14/17 07:32 106 H 157/100 H 04/13/17 18:40 105 H 141/91 H 04/13/17 16:35 18 04/13/17 14:43 89 17 160/92 H 100 04/13/17 09:56 92 H 18 178/81 H 97 04/13/17 08:02 98.7 F 90 18 157/88 H 98 04/13/17 06:15 71 20 117/62 100 04/13/17 04:00 68 14 142/70 100 04/13/17 01:30 80 18 112/76 99 04/12/17 23:30 78 18 124/78 98 04/12/17 20:38 160/98 H 04/12/17 19:24 103/48 L 04/12/17 18:39 77 16 119/67 96 04/12/17 17:55 98.2 F 72 18 119/67 94 L Current Medications: Active Medications Generic Name Dose Route Start Last Admin Trade Name Freq PRN Reason Stop Dose Admin Acetaminophen 650 mg 04/13/17 17:02 Tylenol 325mg Tab PO Q6H PRN Pain, moderate (4-7) Clonazepam 0.5 mg 04/13/17 17:00 04/14/17 09:17 Klonopin PO 0.5 mg BID RUBI Administration Protocol Lidocaine 1 ea 04/13/17 17:01 Lidoderm TD DAILY PRN Pain, moderate (4-7) Lorazepam 0.5 mg 04/13/17 16:59 Ativan IM TID PRN Agitation Protocol Metoprolol Tartrate 25 mg 04/13/17 18:00 01/19/18 07:32 Lopressor PO 25 mg Q12 RUBI Administration Mirtazapine 15 mg 04/13/17 22:00 04/13/17 21:06 Remeron PO 15 mg HS RUBI Administration Risperidone 0.25 mg 04/13/17 16:51 04/14/17 13:05 Risperdal Tab PO 0.25 mg BID PRN Administration Agitation Protocol Risperidone 0.25 mg 04/13/17 22:00 04/13/17 21:07 Risperdal Tab PO 0.25 mg HS RUBI Administration Protocol Past Psychiatric History - Past Psychiatric History Previous Treatment History: Inpatient Prior Professional Help: see HPI Prior Psychiatric Treatment: see HPI At what hospital: see HPI Duration: see HPI Nature of Treatment: see HPI Explanation of prior treatment: see HPI History of Abuse: see HPI History of ETOH/Drug Use: see HPI History of Family Illness: see HPI Pertinent Medical Hx (Current Medical&Sleep Prob, Allergies): Allergies Allergy/AdvReac Type Severity Reaction Status Date / Time ONIONS Allergy ANAPHYLAXIS Uncoded 04/13/17 16:25 Clonazepam [Klonopin] 0.5 mg PO ONCE 03/31/17 Lidocaine 5% [Lidoderm] 1 ea TD Q12 03/31/17 Metoprolol Tartrate [Lopressor] 12.5 mg PO Q12 03/31/17 Mirtazapine [Remeron] 15 mg PO HS 03/31/17 Multivitamin [Daily Ross] 1 tab PO DAILY 03/31/17 traMADol [Ultram] 50 mg PO TID 03/31/17 Review of Systems - Review of Systems Systems not reviewed;Unavailable: Acuity of Condition - EENT Eyes: As Per HPI Ears: As Per HPI Nose/Mouth/Throat: As Per HPI - Breasts Breasts: As Per HPI - Cardiovascular Cardiovascular: As Per HPI - Respiratory Respiratory: As Per HPI - Gastrointestinal Gastrointestinal: As Per HPI - Genitourinary Genitourinary: As Per HPI - Reproductive: Female Reproductive:Female: As Per HPI - Menstruation Menstruation: As Per HPI - Musculoskeletal Musculoskeletal: As Par HPI - Integumentary Integumentary: As Per HPI - Neurological Neurological: As Per HPI - Psychiatric Psychiatric: As Per HPI - Endocrine Endocrine: As Per HPI - Hematologic/Lymphatic Hematologic: As Per HPI Mental Status Examination - Personal Presentation Personal Presentation: Looks younger than stated age - Affect Affect: Broad (at times pt smiling inappropriate) - Motor Activity Motor Activity: Calm - Reliability in Providing Information Reliability in Providing Information: Poor, due to cognitve impairment - Formal Thought Process Formal Thought Process: Other (disorganized thoughts and behavior) - Obsessions/Compulsions Obsessions: None Compulsions: None - Cognitive Functions Orientation: Person Sensorium: Alert Attention/Concentration: Easily distracted Judgement: Imparied, as evidence by: Poor judgement, Imparied, as evidence by: Lack of insight into illness, Imparied, as evidence by: Other (advanced dementia ) - Risk Risk: Self-mutilation, Diminished functioning - Strength & Assets Inventory Strength & Assets Inventory: Family support, Cooperative - Limitations Limitations: Other (demetnia) DSM 5 DX - DSM 5 DSM 5 Diagnosis: Alzheimers Dementia with behavioral disturbance Major Depression by history Anxiety Disorder by history - Recommended/Plan of Treatment Treatment Recommendations and Plan of Treatment: Milieu/structure/supportive therapy 1:1 initiated at the time of admission, pt has wondering behavior, agitation, last admission had code blue Medical consult appreciated, see medical team note for more detailed info SW consultation for discharge plan [facility] (pt might benefit from that) Med management Clonazepam [Klonopin] 0.5 mg PO daily, will be continued Lidocaine 5% [Lidoderm] 1 ea TD Q12 will be continued Metoprolol Tartrate [Lopressor] 12.5 mg PO Q12 will be continued Mirtazapine [Remeron] 15 mg PO HS will be continued Multivitamin [Daily Ross] 1 tab PO DAILY will be continued traMADol [Ultram] 50 mg PO TID d/c risperdal 0.25hs scheduled, and bid prn for agitation/psychosis POA involved Family involvement Follow up on labs Will monitor closely Pt was educated about risk/benefits and alternatives of medications, coping strategies (safety plan, suicide prevention), relapse prevention, importance of follow up with psychiatrist and therapist, stay away from drugs/alcohol/smoking Projected ELOS: 7days Prognosis: poor Discharge Plan and Discharge Criteria: pt will be less aggressive, appropriate NH will accept pt - Smoking Cessation Smoking Cessation Initiated: No Reason for not providing: no h/o smoking
--- NOTE | 2017-04-14 17:42 | CP.PCM.CON ---
<LeonDarian - Last Filed: 04/14/17 17:42> History of Present Illness - History of Present Illness History of Present Illness: Darian Quintero PGY1 IM Consult Note for Dr. Lambert 76 F with a PMHx of Alzheimer's dementia, COPD, kyphoscoliosis and anxiety brought in by ambulance to [facility] with complaints of agitation and aggressive behavior towards half-way residents. Patient has had prior visit with similar presentation. Patient was seen and examined in the [facility] in the psych unit. Pt is AAOx1, denies any complaints at this time. Pt is confused, disorganized and a poor historian. Pt has unsteady gait, has 1:1 sitter for safety of patient and other psych unit patients. Patient denies any symptoms and does not answer questions appropriately. The 1: 1 sitter states that the patient has been trying to kiss other patients and that she requires constant watch, but states that the patient seems comfortable and has not offered her any complaints. 12-pt ROS was reviewed with patient and sitter. PMHx: Alzheimer's dementia, COPD, kyphoscoliosis and anxiety PSHx: Denied SHx: Denied tobacco/etoh/illicit drug FamHx: Noncontributory Meds: MAR reviewed Allergies: Onions PMD: Dr. Fowler Review of Systems - Review of Systems All systems: reviewed and no additional remarkable complaints except (as per HPI ) Past Patient History - Infectious Disease Hx of Infectious Diseases: None - Tetanus Immunizations Tetanus Immunization: Unknown - Past Social History Smoking Status: Former Smoker Alcohol: None Drugs: Denies Home Situation {Lives}: Long Term - CARDIAC Hx Cardiac Disorders: Yes Hx Hypertension: Yes - PULMONARY Hx Respiratory Disorders: Yes Hx Chronic Obstructive Pulmonary Disease (COPD): Yes Hx Tuberculosis: No - NEUROLOGICAL Hx Neurological Disorder: Yes Hx Alzheimer's Disease: Yes HX Cerebrovascular Accident: No Hx Dementia: Yes Hx Seizures: No - HEENT Hx HEENT Problems: No - RENAL Hx Chronic Kidney Disease: No - ENDOCRINE/METABOLIC Hx Endocrine Disorders: No - HEMATOLOGICAL/ONCOLOGICAL Hx Blood Disorders: No Hx Cancer: No - INTEGUMENTARY Hx Dermatological Problems: No - MUSCULOSKELETAL/RHEUMATOLOGICAL Hx Musculoskeletal Disorders: No - GASTROINTESTINAL Hx Gastrointestinal Disorders: No - GENITOURINARY/GYNECOLOGICAL Hx Genitourinary Disorders: No Hx Sexually Transmitted Disorders: No - PSYCHIATRIC Hx Anxiety: Yes Hx Depression: Yes Hx Substance Use: No - SURGICAL HISTORY Hx Surgeries: No - ANESTHESIA Hx Anesthesia: No Meds Allergies/Adverse Reactions: Allergies Allergy/AdvReac Type Severity Reaction Status Date / Time ONIONS Allergy ANAPHYLAXIS Uncoded 04/13/17 16:25 - Medications Medications: Current Medications Acetaminophen (Tylenol 325mg Tab) 650 mg PO Q6H PRN PRN Reason: Pain, moderate (4-7) Clonazepam (Klonopin) 0.5 mg PO BID RUBI PRN Reason: Protocol Last Admin: 04/14/17 17:07 Dose: 0.5 mg Lidocaine (Lidoderm) 1 ea TD DAILY PRN PRN Reason: Pain, moderate (4-7) Lorazepam (Ativan) 0.5 mg IM TID PRN; Protocol PRN Reason: Agitation Metoprolol Tartrate (Lopressor) 25 mg PO Q12 [facility] Last Admin: 04/14/17 17:06 Dose: 25 mg Mirtazapine (Remeron) 15 mg PO HS [facility] Last Admin: 04/13/17 21:06 Dose: 15 mg Risperidone (Risperdal Tab) 0.25 mg PO BID PRN; Protocol PRN Reason: Agitation Last Admin: 04/14/17 13:05 Dose: 0.25 mg Risperidone (Risperdal Tab) 0.25 mg PO HS [facility] PRN Reason: Protocol Last Admin: 04/13/17 21:07 Dose: 0.25 mg Physical Exam - Constitutional Appears: Well, Non-toxic, No Acute Distress Additional comments: confused - Head Exam Head Exam: ATRAUMATIC, NORMAL INSPECTION - Eye Exam Eye Exam: EOMI, Normal appearance, PERRL - ENT Exam ENT Exam: Mucous Membranes Moist - Neck Exam Neck exam: Positive for: Normal Inspection - Respiratory Exam Respiratory Exam: Decreased Breath Sounds (due to posture), Clear to Auscultation Bilateral, NORMAL BREATHING PATTERN. absent: Rales, Rhonchi, Wheezes - Cardiovascular Exam Cardiovascular Exam: RRR, +S1, +S2. absent: Systolic Murmur - GI/Abdominal Exam GI & Abdominal Exam: Normal Bowel Sounds, Soft. absent: Distended, Guarding, Tenderness - Extremities Exam Extremities exam: Positive for: full ROM, normal inspection. Negative for: pedal edema, tenderness - Back Exam Additional comments: severe kyphoscoliosis noted - Neurological Exam Neurological exam: Abnormal Gait (slow shuffling gait) Additional comments: no motorsensory focal defects AAOx1 (person; NOT TIME OR PLACE) - Psychiatric Exam Psychiatric exam: Normal Affect, Normal Mood - Skin Skin Exam: Normal Color, Warm Results - Vital Signs Recent Vital Signs: Last Vital Signs Temp 98.7 F 04/13/17 08:02 Pulse 107 H 04/14/17 17:06 Resp 18 04/13/17 16:35 BP 139/77 04/14/17 17:06 Pulse Ox 100 04/13/17 14:43 - Labs Result Diagrams: 04/12/17 18:30 04/12/17 18:30 Labs: Laboratory Results - last 24 hr 04/14/17 07:30 Triglycerides 141 Cholesterol 248 H LDL Cholesterol Direct 169 H HDL Cholesterol 49 Assessment & Plan - Assessment and Plan (Free Text) Assessment: 76 F with a PMHx of Alzheimer's dementia, COPD, kyphoscoliosis and anxiety brought in by ambulance to [facility] [place] [facility] with complaints of agitation and aggressive behavior towards half-way residents. Patient admitted in [facility] psych unit for continued surveillance and treatment. Medicine team was consulted for medical clearance. Plan: 1. Anxiety and agitation - continue treatment per psych team - continue Risperidone and Klonipin BID - cont Ativan PRN - cont 1:1 sitter 2. Dementia vs delirium - likely 2/2 Alzheimer's, progressing - continue treatment per psych team - recommend follow up as outpatient with neurology for treatment - UDS negative - UA shows small LE but no bacteria - waiting for urine culture - TSH wnl 3. COPD, unclear hx but patient is asymptomatic - duoneb prn for sob 4. Hyperlipidemia - will start patient on statin 5. PPX - protonix - patient is ambulatory and not requiring DVT ppx Patient is medically cleared. Will sign off for now, but will recheck urine culture and add antibiotics if needed. Please reconsult if needed. Patient was seen, examined and discussed with attending, Dr. Petra Quintero PGY1 <Guerline Lambert - Last Filed: 04/14/17 18:21> Meds - Medications Medications: Current Medications Acetaminophen (Tylenol 325mg Tab) 650 mg PO Q6H PRN PRN Reason: Pain, moderate (4-7) Albuterol/Ipratropium (Duoneb 3 Mg/0.5 Mg (3 Ml) Ud) 3 ml IH Q4H PRN PRN Reason: Shortness of Breath Atorvastatin Calcium (Lipitor) 20 mg PO DIN RUBI Clonazepam (Klonopin) 0.5 mg PO BID RUBI PRN Reason: Protocol Last Admin: 04/14/17 17:07 Dose: 0.5 mg Lidocaine (Lidoderm) 1 ea TD DAILY PRN PRN Reason: Pain, moderate (4-7) Lorazepam (Ativan) 0.5 mg IM TID PRN; Protocol PRN Reason: Agitation Metoprolol Tartrate (Lopressor) 25 mg PO Q12 [facility] Last Admin: 04/14/17 17:06 Dose: 25 mg Mirtazapine (Remeron) 15 mg PO HS [facility] Last Admin: 04/13/17 21:06 Dose: 15 mg Pantoprazole Sodium (Protonix Ec Tab) 40 mg PO 0600 RUBI Risperidone (Risperdal Tab) 0.25 mg PO BID PRN; Protocol PRN Reason: Agitation Last Admin: 04/14/17 13:05 Dose: 0.25 mg Risperidone (Risperdal Tab) 0.25 mg PO HS RUBI PRN Reason: Protocol Last Admin: 04/13/17 21:07 Dose: 0.25 mg Results - Vital Signs Recent Vital Signs: Last Vital Signs Temp 98.7 F 04/13/17 08:02 Pulse 107 H 04/14/17 17:06 Resp 18 04/13/17 16:35 BP 139/77 04/14/17 17:06 Pulse Ox 100 04/13/17 14:43 - Labs Result Diagrams: 04/12/17 18:30 04/12/17 18:30 Labs: Laboratory Results - last 24 hr 04/14/17 07:30 Triglycerides 141 Cholesterol 248 H LDL Cholesterol Direct 169 H HDL Cholesterol 49 Attending/Attestation - Attestation I have personally seen and examined this patient.: Yes I have fully participated in the care of the patient.: Yes I have reviewed all pertinent clinical information: Yes Notes (Text): I have seen and examined the patient at bedside. Agree with the above note with the following additions/ exceptions: Briefly this is 76 year old female with history of Alzheimer's dementia, COPD, kyphoscoliosis and anxiety who was brought from [facility] with complaints of agitation and aggressive behavior towards half-way residents. Patient has had prior visit with similar presentation. She is alert and confused. She does not appear to be in any distress. We did not see her coughing and does not have any respiratory distress. CXR is reviewed. I personally think its more likely atelectasis as she appears very comfortable and exhibit no signs or symptoms of CAP. I will discuss with psychiatrist. May add namenda 5 mg daily / aricept 5 mg daily for severe AD. She has dyslipidemia. Will start lipitor and low fat diet. Will follow up on urine culture. Upon discharge patient will follow up with Dr Fowler. Dr Guerline Lambert
[2017-04-14] MEDS ORDERED: Albuterol-Ipratrop 3 mg / 0.5 (3 ml) UD IH PRN (17:58)
[2017-04-15] MEDS: Pantoprazole 40 mg EC Tab PO SCH (06:51)
--- NOTE | 2017-04-15 08:51 | PCM.PYCHPN ---
Psychiatric Progress Note - Psychiatric Progress Note Patient seen today, length of contact: 25 min Problems Identified/Issues Discussed: I reviewed recent notes and patient was seen at bedside. Similar to her prior presentation, patient remains grossly disoriented and confused. She doesn't know her current location, month, year or circumstances. Her memory is notably impaired. She has difficulty comprehending many of my questions and frequently echoes the last word spoken. It is difficult to establish any meaningful dialogue. Her responses are random, irrelevant and inconsistent. Affect is flat and unaffected. She doesn't appear to be concerned about her disorientation and she doesn't vocalize any curiosity or interest about her treatment plan. Patient denies hallucinations and doesn't appear to be responding to internal stimuli. Her eye contact is good. Patient is more illogical than delusional as no fixed delusion can be elicited at this time. She denies any discomfort or pain. Staff notes indicate that patient has been labile, confused and combative at times. Apparently patient became paranoid with her sitter and scratched her yesterday afternoon. Patient has also been trying to leave the unit. There were no major behavioral issues overnight. Diagnostic Results: Alzheimers Dementia with behavioral disturbance Major Depression by history Anxiety Disorder by history Mental Status Examination - Cognitive Function Orientation: Person Attention: Poor Concentration: Poor Association: Loose Fund of Knowledge: Poor - Affect Affect: Broad (at times pt smiling inappropriate) - Formal Thought Process Formal Thought Process: Other (disorganized thoughts and behavior) Goal/Treatment Plan - Goal/Treatment Plan Progress Toward Problem(s) and Goals/Treatment Plan: * c/w current tx and plan * No new weekend labs thus far * Vitals reviewed and noted below: Selected Entries 04/13/17 04/13/17 04/13/17 14:43 16:35 18:40 Pulse Rate 89 105 H Respiratory 17 18 Rate Blood Pressure 160/92 H 141/91 H 04/14/17 04/14/17 07:32 17:06 Pulse Rate 106 H 107 H Respiratory Rate Blood Pressure 157/100 H 139/77
--- NOTE | 2017-04-16 08:36 | PCM.PYCHPN ---
Psychiatric Progress Note - Psychiatric Progress Note Patient seen today, length of contact: 25 min Problems Identified/Issues Discussed: I reviewed recent notes and patient was seen at bedside. Similar to prior presentations, patient remains grossly disoriented and confused. She doesn't know her current location, month, year or circumstances. She believes that we are in [place]. Her memory is notably impaired. She has difficulty comprehending many of my questions and frequently echoes the last word spoken or responds completely irrelevantly. It is difficult to establish any meaningful dialogue. Affect is flat and unaffected. Patient still doesn't appear to be concerned about her disorientation and she doesn't vocalize any curiosity or interest about her treatment plan. Patient denies hallucinations and doesn't appear to be responding to internal stimuli. Her eye contact is good. Patient is more illogical than delusional as no fixed delusion can be elicited at this time. She denies any discomfort or pain. Staff notes indicate that patient has been labile, confused and combative at times. Apparently patient became paranoid with her sitter and scratched her on Monday afternoon. Patient also tried to open door to unit. Her insight and judgment remain poor. Diagnostic Results: Alzheimers Dementia with behavioral disturbance Major Depression by history Anxiety Disorder by history Mental Status Examination - Cognitive Function Orientation: Person Attention: Poor Concentration: Poor Association: Loose Fund of Knowledge: Poor - Affect Affect: Broad (at times pt smiling inappropriate) - Formal Thought Process Formal Thought Process: Other (disorganized thoughts and behavior) Goal/Treatment Plan - Goal/Treatment Plan Progress Toward Problem(s) and Goals/Treatment Plan: * c/w current tx and plan * No new weekend labs * Vitals reviewed and noted below: 04/15/17 04/15/17 04/15/17 07:11 16:00 17:09 Temperature 97.8 F Pulse Rate 98 H 81 81 Respiratory 20 Rate Blood Pressure 140/80 121/69 121/69
[2017-04-16] MEDS: Pantoprazole 40 mg EC Tab PO SCH (09:28)
[2017-04-16 22:22] LABS: URINE BILIRUBIN NEGATIVE (NEGATIVE); URINE BLOOD TRACE-INTACT (NEGATIVE); URINE GLUCOSE (UA) NEGATIVE (NEGATIVE); URINE LEUKOCYTE ESTERASE TRACE Leu/uL (NEGATIVE); URINE NITRATE NEGATIVE (NEGATIVE); URINE PROTEIN NEGATIVE mg/dL (<30 mg/dL); URINE UROBILINOGEN 0.2 E.U./dL (<1 E.U./dL)
[2017-04-16 22:34] LABS: URINE APPEARANCE CLEAR (CLEAR); URINE COLOR YELLOW (YELLOW)
[2017-04-16 22:58] LABS: URINE BACTERIA FEW (NEG); URINE RBC 0 - 2 /hpf (0-2)
[2017-04-17 07:16] VITALS: TEMP 98.2; O2SAT 98
[2017-04-17] MEDS: Pantoprazole 40 mg EC Tab PO SCH (07:36)
--- NOTE | 2017-04-17 16:58 | PCM.PYCHPN ---
Psychiatric Progress Note - Psychiatric Progress Note Patient seen today, length of contact: 30min Patient Chief Complaint: "I need my mother". Problems Identified/Issues Discussed: tx plan was discussed with family in details medications tramadol is not indicated now risperdal was continued and given additionally as needed medical follow up called, no indication for BP meds d/c 1:1 also discussed discharged plan discussed Medical Problems: HTN chronic back pain and scoliosis Diagnostic Results: 04/12/17 18:30 04/12/17 18:30 Lab Results 04/16/17 23:57: POC Glucose (mg/dL) 115 H 04/16/17 20:45: Urine Color Yellow, Urine Appearance Clear, Urine pH 6.0, Ur Specific [place] 1.025, Urine Protein Negative, Urine Glucose (UA) Negative, Urine Ketones Negative, Urine Blood Trace-intact H, Urine Nitrate Negative, Urine Bilirubin Negative, Urine Urobilinogen 0.2, Ur Leukocyte Esterase Trace H , Urine RBC 0 - 2, Urine WBC 2 - 5, Ur Epithelial Cells 1 - 3, Urine Bacteria Few 04/14/17 07:30: Triglycerides 141, Cholesterol 248 H, LDL Cholesterol Direct 169 H, HDL Cholesterol 49 04/13/17 12:10: Urine Opiates Screen Negative, Urine Methadone Screen Negative, Ur Barbiturates Screen Negative, Ur Phencyclidine Scrn Negative, Ur Amphetamines Screen Negative, U Benzodiazepines Scrn Negative, U Oth Cocaine Metabols Negative, U Cannabinoids Screen Negative 04/13/17 12:10: Urine Color Yellow, Urine Appearance Sl cloudy, Urine pH 5.5, Ur Specific [place] >= 1.030, Urine Protein Negative, Urine Glucose (UA) Negative, Urine Ketones Negative, Urine Blood Small H, Urine Nitrate Negative, Urine Bilirubin Negative, Urine Urobilinogen 0.2, Ur Leukocyte Esterase Small H , Urine RBC 2 - 5, Urine WBC 2 - 5, Ur Epithelial Cells 3 - 4, Urine Bacteria Few 04/12/17 18:30: Alcohol, Quantitative < 10 04/12/17 18:30: Salicylates < 1 L, Acetaminophen < 10.0 L 04/12/17 18:30: Sodium 139, Potassium 4.0, Chloride 102, Carbon Dioxide 26, Anion Gap 15, BUN 24 H, Creatinine 0.8, Est GFR ( Amer) > 60, Est GFR ( Non-Af Amer) > 60, Random Glucose 119 H, Calcium 10.4, Total Bilirubin 0.3, AST 27, ALT 28, Alkaline Phosphatase 110, Total Protein 7.5, Albumin 4.3, Globulin 3.2, Albumin/Globulin Ratio 1.3 04/12/17 18:30: WBC 8.5, RBC 4.95, Hgb 15.4, Hct 46.0, MCV 92.9, MCH 31.1, MCHC 33.5, RDW 13.0, Plt Count 290, MPV 9.6, Gran % 72.6 H, Lymph % (Auto) 20.8 L, [place] % (Auto) 5.6, Eos % (Auto) 0.9 L, Baso % (Auto) 0.1, Gran # 6.18, Lymph # 1.8, [place] # 0.5, Eos # 0.1, Baso # 0.01 Vital Signs Temp Pulse Resp BP Pulse Ox 04/17/17 07:36 57 L 150/67 04/17/17 06:59 98.2 F 56 L 18 150/67 98 04/16/17 16:00 74 110/60 04/16/17 08:00 98.1 F 115 H 20 154/96 H 04/15/17 17:09 81 121/69 04/15/17 16:00 81 121/69 04/15/17 07:11 97.8 F 98 H 20 140/80 04/15/17 06:50 98 H 140/80 04/14/17 17:06 107 H 139/77 04/14/17 07:32 106 H 157/100 H 04/13/17 18:40 105 H 141/91 H 04/13/17 16:35 18 04/13/17 14:43 89 17 160/92 H 100 04/13/17 09:56 92 H 18 178/81 H 97 04/13/17 08:02 98.7 F 90 18 157/88 H 98 04/13/17 06:15 71 20 117/62 100 04/13/17 04:00 68 14 142/70 100 04/13/17 01:30 80 18 112/76 99 04/12/17 23:30 78 18 124/78 98 04/12/17 20:38 160/98 H 04/12/17 19:24 103/48 L 04/12/17 18:39 77 16 119/67 96 04/12/17 17:55 98.2 F 72 18 119/67 94 L DSM 5 Symptoms Update: shortly patient is a 76 yo female with history of Major Depression, Anxiety Disorder, Alzheimers dementia who was transferred from [facility] for increase agitation and aggressive behavior towards staff. Patient's psychiatrist Dr. Mir referred pt for further evaluation and stabilization. Pt was admitted to this facility 04/01/17, pt needed to be transferred to ED s/p rapid response and code blue, in the ED pt's son (GIA Flores and his Ramona) signed pt AMA and brought pt to [facility] where pt was on telemetry unit and was started on small dose of risperdal, pt was discharged from [facility] on 04/11/17, at that evening pt became agitated, pt was not given her hs dose of risperdal, and was physically aggressive towards staff and other consumers, was throwing water towards them. Pt's POA signed consent for treatment and was in agreement with the plan of medication adjustment and possible transfer for geriatric-psychiatric unit. pt was seen today at the dinning area, pt was able to give relatively appropriate answers on simple questions for example when this headline writer asked pt how pt is doing today. as per staff pt was fixated on one male pt which she feels might be her son, no agitation or aggression, pt needed to have redirection because of that. pt compliant with meds, no side effects. discussed with pt's POA, daughter in law in details today, treatment plan, d/c plan as well. this headline writer called discussed meds for BP, not indicated adjustment at this time, because the risk of falls, see addendum. 04/17/17. DSM 5 Diagnosis: Alzheimers Dementia with behavioral disturbance, advanced Major Depression by history Medication Change: Yes Medical Record Reviewed: Yes Consults ordered or reviewed: medical consult appreciated discussed case today with Mental Status Examination - Cognitive Function Orientation: Person Attention: Poor Concentration: Poor Association: Loose Fund of Knowledge: Poor - Affect Affect: Broad (at times pt smiling inappropriate) - Formal Thought Process Formal Thought Process: Other (disorganized thoughts and behavior) - Suicidal Ideation Suicidal Ideation: No Plan: does not exhibit any signs of that - Homicidal Ideation Homicidal Ideation: No Plan: does not exhibit any signs of that Goal/Treatment Plan - Goal/Treatment Plan Need for Continued Stay: Remain at risks for inpatient hospitalization, Severe depression anxiety, Discharge may exacerbated symptoms, Severe functional impairment Progress Toward Problem(s) and Goals/Treatment Plan: Milieu/structure/supportive therapy 1:1 initiated at the time of admission, pt has wondering behavior, agitation, last admission had code blue Medical consult appreciated, see medical team note for more detailed info consultation for discharge plan [facility]-psych unit (pt might benefit from that) Med management Clonazepam [Klonopin] 0.5 mg PO daily, will be continued Lidocaine 5% [Lidoderm] 1 ea TD Q12 will be continued Metoprolol Tartrate [Lopressor] 25 mg PO Q12 will be continued Mirtazapine [Remeron] 15 mg PO HS will be continued Multivitamin [Daily Ross] 1 tab PO DAILY will be continued traMADol [Ultram] 50 mg PO TID d/c risperdal 0.25hs scheduled, and bid prn for agitation/psychosis POA involved, discussed today 04/17/17, see note for more detailed information discussed with medical team today 04/17/17, no need to increase BP meds Follow up on labs Will monitor closely Pt was educated about risk/benefits and alternatives of medications, coping strategies (safety plan, suicide prevention), relapse prevention, importance of follow up with psychiatrist and therapist, stay away from drugs/alcohol/smoking Estimated Date of D/C: 04/18/17
[2017-04-18] MEDS: Pantoprazole 40 mg EC Tab PO SCH (06:31)
[2017-04-18 07:23] VITALS: RESP 20
[2017-04-18 16:18] VITALS: BP 124/70; PULSE 70
--- NOTE | 2017-04-18 16:41 | PCM.PYCHDC ---
Mental Status Examination - Mental Status Examination Orientation: Person Memory: Impaired (chronic dementia, advanced) Mood: Neutral Affect: Constricted Speech: Soft (and disorganized) Attention: Poor Concentration: Poor Association: Loose Fund of Knowledge: Poor Formal Thought Process: Other (pt is disorganized due to chronic dementia) Description of patient's judgement and insight: impaired due to advanced dementia Psychotic Thoughts and Behaviors: dementia Suicidal Ideation: No Current Homicidal Ideation?: No Plan: pt is disorganized, wondering but redirectable Discharge Summary - Discharge Note Reason for Hospitalization: pt was admitted for evaluation of agitation/meds adjustment Psychiatric History (includes Medical, Family, Personal Hx): see HPI Laboratory Data: 04/12/17 18:30 04/12/17 18:30 Lab Results 04/16/17 23:57: POC Glucose (mg/dL) 115 H 04/16/17 20:45: Urine Color Yellow, Urine Appearance Clear, Urine pH 6.0, Ur Specific [place] 1.025, Urine Protein Negative, Urine Glucose (UA) Negative, Urine Ketones Negative, Urine Blood Trace-intact H, Urine Nitrate Negative, Urine Bilirubin Negative, Urine Urobilinogen 0.2, Ur Leukocyte Esterase Trace H , Urine RBC 0 - 2, Urine WBC 2 - 5, Ur Epithelial Cells 1 - 3, Urine Bacteria Few 04/14/17 07:30: Triglycerides 141, Cholesterol 248 H, LDL Cholesterol Direct 169 H, HDL Cholesterol 49 04/13/17 12:10: Urine Opiates Screen Negative, Urine Methadone Screen Negative, Ur Barbiturates Screen Negative, Ur Phencyclidine Scrn Negative, Ur Amphetamines Screen Negative, U Benzodiazepines Scrn Negative, U Oth Cocaine Metabols Negative, U Cannabinoids Screen Negative 04/13/17 12:10: Urine Color Yellow, Urine Appearance Sl cloudy, Urine pH 5.5, Ur Specific [place] >= 1.030, Urine Protein Negative, Urine Glucose (UA) Negative, Urine Ketones Negative, Urine Blood Small H, Urine Nitrate Negative, Urine Bilirubin Negative, Urine Urobilinogen 0.2, Ur Leukocyte Esterase Small H , Urine RBC 2 - 5, Urine WBC 2 - 5, Ur Epithelial Cells 3 - 4, Urine Bacteria Few 04/12/17 18:30: Alcohol, Quantitative < 10 04/12/17 18:30: Salicylates < 1 L, Acetaminophen < 10.0 L 04/12/17 18:30: Sodium 139, Potassium 4.0, Chloride 102, Carbon Dioxide 26, Anion Gap 15, BUN 24 H, Creatinine 0.8, Est GFR ( Amer) > 60, Est GFR ( Non-Af Amer) > 60, Random Glucose 119 H, Calcium 10.4, Total Bilirubin 0.3, AST 27, ALT 28, Alkaline Phosphatase 110, Total Protein 7.5, Albumin 4.3, Globulin 3.2, Albumin/Globulin Ratio 1.3 04/12/17 18:30: WBC 8.5, RBC 4.95, Hgb 15.4, Hct 46.0, MCV 92.9, MCH 31.1, MCHC 33.5, RDW 13.0, Plt Count 290, MPV 9.6, Gran % 72.6 H, Lymph % (Auto) 20.8 L, [place] % (Auto) 5.6, Eos % (Auto) 0.9 L, Baso % (Auto) 0.1, Gran # 6.18, Lymph # 1.8, [place] # 0.5, Eos # 0.1, Baso # 0.01 Vital Signs Temp Pulse Resp BP Pulse Ox 04/18/17 16:16 70 124/70 04/18/17 07:22 98.2 F 97 H 20 152/82 H 04/18/17 06:30 97 H 152/82 H 04/17/17 07:36 57 L 150/67 04/17/17 06:59 98.2 F 56 L 18 150/67 98 04/16/17 16:00 74 110/60 04/16/17 08:00 98.1 F 115 H 20 154/96 H 04/15/17 17:09 81 121/69 04/15/17 16:00 81 121/69 04/15/17 07:11 97.8 F 98 H 20 140/80 04/15/17 06:50 98 H 140/80 04/14/17 17:06 107 H 139/77 04/14/17 07:32 106 H 157/100 H 04/13/17 18:40 105 H 141/91 H 04/13/17 16:35 18 04/13/17 14:43 89 17 160/92 H 100 04/13/17 09:56 92 H 18 178/81 H 97 04/13/17 08:02 98.7 F 90 18 157/88 H 98 04/13/17 06:15 71 20 117/62 100 04/13/17 04:00 68 14 142/70 100 04/13/17 01:30 80 18 112/76 99 04/12/17 23:30 78 18 124/78 98 04/12/17 20:38 160/98 H 04/12/17 19:24 103/48 L 04/12/17 18:39 77 16 119/67 96 04/12/17 17:55 98.2 F 72 18 119/67 94 L Consultations:: List each consultation separately and include: 1. Reason for request. 2. Findings. 3. Follow-up Consultations: \\medical consult appreciated discussed case with 04/17/17, see addendum Summary of Hospital Course include:: 1. Description of specific treatment plan utilized for patients during their course of treatmen. 2. Summarize the time- course for resolution of acute symptoms and/or regressed behaviors. 3. Describe issues identified and worked on during hospitalization. 4. Describe medication utilized. 5. Describe medical problems identified and treated. 6. Reassessment of suicide risk Summary of Hospital Course: shortly patient is a 76 yo female with history of Major Depression, Anxiety Disorder, Alzheimers dementia who was transferred from [facility] for increase agitation and aggressive behavior towards staff. Patient's psychiatrist Dr. Mir referred pt for further evaluation and stabilization. Pt was admitted to this facility 04/01/17, pt needed to be transferred to ED s/p rapid response and code blue, in the ED pt's son (GIA Flores and his Ramona) signed pt AMA and brought pt to [place] where pt was on telemetry unit and was started on small dose of risperdal, pt was discharged from [place] on 04/11/17, at that evening pt became agitated, pt was not given her hs dose of risperdal, and was physically aggressive towards staff and other consumers, was throwing water towards them. Pt's POA signed consent for treatment and was in agreement with the plan of medication adjustment and possible transfer for geriatric-psychiatric unit. Initially pt was seen in ED, then psych inpatient unit.pt presented very well to compare to the previous admission was able to give relatively appropriate answers on simple questions for example when this job specification writer asked pt how pt is doing today, pt said "I am well, how are you?", then pt was saying that she is looking for money and her mother, then pt said "probably they are doing something", no meaningful conversation possible. pt's family was in agreement with tx plan, son and pt's daughter in law was requesting risperdal to be continued, risk/benefits and alternatives discussed, pt's son said "I agree, all medications could give some sort of side effects". d/c notes from [place] Telemetry unit reviewed, pt was on Risperdal 0.25hs and will add bid the same dose PRN, will continue with klonopin 0.5 mg po bid, remeron 15 mg HS at her [facility], all meds resumed. Past psych h/o: depression, anxiety, h/o delirium, h/o dementia with behavioral disturbances, not known h/o suicidal attempts. Family h/o: as per h/o none Medical h/o: h/o chronic back pain, h/o dementia, h/o syncope no h/o drug abuse, no smoking h/o, no h/o physical/emotional/sexual abuse. overall patient tolerated medications well, no side effects observed or reported. 04/12/17 18:30 04/12/17 18:30 Lab Results 04/14/17 07:30: Triglycerides 141, Cholesterol 248 H, LDL Cholesterol Direct 169 H, HDL Cholesterol 49 04/13/17 12:10: Urine Opiates Screen Negative, Urine Methadone Screen Negative, Ur Barbiturates Screen Negative, Ur Phencyclidine Scrn Negative, Ur Amphetamines Screen Negative, U Benzodiazepines Scrn Negative, U Oth Cocaine Metabols Negative, U Cannabinoids Screen Negative 04/13/17 12:10: Urine Color Yellow, Urine Appearance Sl cloudy, Urine pH 5.5, Ur Specific [place] >= 1.030, Urine Protein Negative, Urine Glucose (UA) Negative, Urine Ketones Negative, Urine Blood Small H, Urine Nitrate Negative, Urine Bilirubin Negative, Urine Urobilinogen 0.2, Ur Leukocyte Esterase Small H , Urine RBC 2 - 5, Urine WBC 2 - 5, Ur Epithelial Cells 3 - 4, Urine Bacteria Few 04/12/17 18:30: Alcohol, Quantitative < 10 04/12/17 18:30: Salicylates < 1 L, Acetaminophen < 10.0 L 04/12/17 18:30: Sodium 139, Potassium 4.0, Chloride 102, Carbon Dioxide 26, Anion Gap 15, BUN 24 H, Creatinine 0.8, Est GFR ( Amer) > 60, Est GFR ( Non-Af Amer) > 60, Random Glucose 119 H, Calcium 10.4, Total Bilirubin 0.3, AST 27, ALT 28, Alkaline Phosphatase 110, Total Protein 7.5, Albumin 4.3, Globulin 3.2, Albumin/Globulin Ratio 1.3 04/12/17 18:30: WBC 8.5, RBC 4.95, Hgb 15.4, Hct 46.0, MCV 92.9, MCH 31.1, MCHC 33.5, RDW 13.0, Plt Count 290, MPV 9.6, Gran % 72.6 H, Lymph % (Auto) 20.8 L, [place] % (Auto) 5.6, Eos % (Auto) 0.9 L, Baso % (Auto) 0.1, Gran # 6.18, Lymph # 1.8, [place] # 0.5, Eos # 0.1, Baso # 0.01 Vital Signs Temp Pulse Resp BP Pulse Ox 04/14/17 07:32 106 H 157/100 H 04/13/17 18:40 105 H 141/91 H 04/13/17 16:35 18 04/13/17 14:43 89 17 160/92 H 100 04/13/17 09:56 92 H 18 178/81 H 97 04/13/17 08:02 98.7 F 90 18 157/88 H 98 04/13/17 06:15 71 20 117/62 100 04/13/17 04:00 68 14 142/70 100 04/13/17 01:30 80 18 112/76 99 04/12/17 23:30 78 18 124/78 98 04/12/17 20:38 160/98 H 04/12/17 19:24 103/48 L 04/12/17 18:39 77 16 119/67 96 04/12/17 17:55 98.2 F 72 18 119/67 94 L pt was stabilized on the following meds: Clonazepam [Klonopin] 0.5 mg PO daily for anxiety Lidocaine 5% [Lidoderm] 1 ea TD Q12 continued Metoprolol Tartrate [Lopressor] 25 mg PO [id number] Mirtazapine [Remeron] 15 mg PO HS continued Multivitamin [Daily Ross] 1 tab PO DAILY continued traMADol [Ultram] 50 mg PO TID d/c risperdal 0.25hs scheduled, and bid prn for agitation/psychosis POA involved, discussed today 04/17/17, see SW note for more detailed information medical team involved discussed with medical team 04/17/17, no need to increase BP meds overall pt improved as much as she could no agitation or aggression, wondering behavior pt sleeps and eats well usually better related to male staff off 1:1 for the past 24hrs pt is set for d/c today with the plan to be transected to the OR, then pt will be transferred to [facility]. pt's family is aware, agreed with d/c plan. At the time of the discharge pt is calmer, pt is not in imminent danger to self or others, will be following up with psychiatrist at the OR, recommended withing 48hr, it is OR responsibility to provide pt with proper f/u with PMD as well as specialists (see SW note for more detailed information). In case pt will need to obtain results of studies pending at discharge pt was provided with contact information of Psychiatric Inpatient unit [phone] as well as Medical Record Department [phone]. pt will be continued on all meds from the medication reconciliation form pt's family agreed with the plan Pt was educated about safety plan in case of worsening of symptoms or in case of suicidal or homicidal ideation call 911 or go to the nearest ER, also was educated to take meds as prescribed and stay away from drugs, pt verbalized understanding. - Diagnosis (1) Dementia Current Visit: No Status: Acute Priority: High - Final Diagnosis (DSM 5) Condition upon Discharge: IMPROVED Disposition: NURSING FACILITY MEDICAID CERT Follow-up Treatment Plan: At the time of the discharge pt is calmer, pt is not in imminent danger to self or others, will be following up with psychiatrist at the OR, recommended withing 48hr, it is OR responsibility to provide pt with proper f/u with PMD as well as specialists (see SW note for more detailed information). In case pt will need to obtain results of studies pending at discharge pt was provided with contact information of Psychiatric Inpatient unit [phone] as well as Medical Record Department [phone]. pt will be continued on all meds from the medication reconciliation form pt's family agreed with the plan Pt was educated about safety plan in case of worsening of symptoms or in case of suicidal or homicidal ideation call 911 or go to the nearest ER, also was educated to take meds as prescribed and stay away from drugs, pt verbalized understanding. Prescriptions/Medication Reconciliation: Albuterol/Ipratropium [Duoneb 3 mg/0.5 mg (3 ml) UD] 3 ml IH Q4H PRN #1 neb PRN Reason: Shortness Of Breath Atorvastatin [Lipitor] 20 mg PO DIN #1 tab clonazePAM [Klonopin] 0.5 mg PO BID #1 tab Lidocaine 5% [Lidoderm] 1 ea TD DAILY PRN #1 patch PRN Reason: Pain, Moderate (4-7) Metoprolol Tartrate [Lopressor] 25 mg PO Q12 #1 tab Mirtazapine [Remeron] 15 mg PO HS #1 tab Pantoprazole [Protonix EC Tab] 40 mg PO 0600 #1 ect risperiDONE [RisperDAL Tab] 0.25 mg PO BID PRN #1 tab PRN Reason: Agitation risperiDONE [RisperDAL Tab] 0.25 mg PO HS #1 tab - Smoking Cessation Smoking Cessation Medication prescribed: No Reason for not providing: pt does not smoke - Antipsychotic Medications Pt discharged on 2 or more routine antipsychotic medications: No
== END 2017-04-18 18:26 | DRG 57 ==
LOC: ED 17:26 → ERH 04-13 13:03 → PSYC 04-13 15:56
PROVIDERS: ADMIT Psychiatry & Neurology Psychiatry; ATTEND Psychiatry & Neurology Psychiatry
DX: G30.9 Alzheimer's disease, unspecified (principal); F02.81 Dementia in other diseases classified elsewhere, unspecified severity, with behavioral disturbance; J44.9 Chronic obstructive pulmonary disease, unspecified; F32.9 Major depressive disorder, single episode, unspecified; I10 Essential (primary) hypertension; M41.9 Scoliosis, unspecified; G89.29 Other chronic pain; M54.9 Dorsalgia, unspecified; F41.9 Anxiety disorder, unspecified; E78.5 Hyperlipidemia, unspecified; Z78.1 Physical restraint status